=== PATIENT | male | born 1930 | race American Indian/Alaskan Native ===

== ENCOUNTER 2017-03-06 20:41 | Inpatient (IN) | payer MEDICARE, MEDICAID ==
[2017-03-06 20:41] VITALS: BMI 22.6
[2017-03-06 21:41] LABS: BASO # 0.01 K/mm3 (0.0-2.0); BASO % 0.1 % (0.0-3.0); EOS % 0.1 % (1.5-5.0); GRAN # 13.81 (1.4-6.5); GRAN % 82.5 % (50.0-68.0); HEMOGLOBIN 11.2 g/dL (14.0-18.0); LYMPH # 1.5 (1.2-3.4); LYMPH % 9.1 % (22.0-35.0); MEAN CELL VOLUME 83.3 fl (80.0-105.0); MEAN CORPUSCULAR HEMOGLOBIN 27.1 pg (25.0-35.0); MEAN CORPUSCULAR HGB CONC 32.5 g/dl (31.0-37.0); MEAN PLATELET VOLUME 11.6 fl (7.0-11.0); MONO # 1.4 (0.1-0.6); MONO % 8.2 % (1.0-6.0); RBC 4.14 10^6/uL (3.5-6.1); RED CELL DISTRIBUTION WIDTH 15.2 % (11.5-14.5); WHITE BLOOD COUNT 16.7 10^3/ul (4.5-11.0)
[2017-03-06 21:48] LABS: AST/SGOT 94 U/L (17-59)
[2017-03-06 21:49] LABS: ALT/SGPT 90 U/L (7-56); VENOUS BLOOD GAS BASE EXCESS -0.7 mmol/L (0.0-2.0); VENOUS BLOOD GAS PO2 53 mm/Hg (30-55); VENOUS BLOOD PH 7.39 (7.32-7.43)
[2017-03-06 21:57] LABS: ALBUMIN 3.6 g/dL (3.0-4.8); BLOOD UREA NITROGEN 21 mg/dL (7-21); GFR AFRICAN-AMERICAN > 60; GFR NON-AFRICAN AMERICAN > 60; MAGNESIUM 2.5 mg/dL (1.7-2.2)
[2017-03-06 21:59] LABS: INR 1.23 (0.93-1.08); PARTIAL THROMBOPLASTIN TIME 34.7 Seconds (25.1-36.5); PROTHROMBIN TIME 14.1 SECONDS (9.4-12.5)
[2017-03-06 23:31] LABS: PH,URINE 8.5 (4.7-8.0); URINE BILIRUBIN NEGATIVE (NEGATIVE); URINE BLOOD SMALL (NEGATIVE); URINE GLUCOSE (UA) NEGATIVE (NEGATIVE); URINE LEUKOCYTE ESTERASE MODERATE Leu/uL (NEGATIVE); URINE NITRATE POSITIVE (NEGATIVE); URINE PROTEIN 100 mg/dL (<30 mg/dL)
[2017-03-06 23:46] LABS: URINE APPEARANCE CLOUDY (CLEAR); URINE COLOR YELLOW (YELLOW)
[2017-03-06 23:55] LABS: URINE AMORPHOUS SEDIMENT LARGE; URINE BACTERIA MANY (NEG); URINE EPITHELIAL CELLS 0 - 2 /hpf (0-5); URINE RBC 0 - 2 /hpf (0-2)
[2017-03-06] MEDS ORDERED: cefTRIAXone 1 gm 1 GM/100 ML BAG IVPB STA (23:58)
[2017-03-07] MEDS ORDERED: Vancomycin 1gm in NS 250ml 1 GM/250 ML BAG IVPB STA (00:07)
[2017-03-07] MEDS ORDERED: Piperacillin/Tazobact 3.375 gm 100 ML IVPB STA (00:08)
--- NOTE | 2017-03-07 00:12 | ED PDOC ---
Arrival/HPI - General Chief Complaint: Medical Clearance Time Seen by Provider: 03/06/17 21:08 Historian: Patient, Detention - History of Present Illness Narrative History of Present Illness (Text): 03/07/17 00:09 86-year-old male presents today from intermediate with a fever of 103.2. Patient denies headache dizziness or weakness. Denies chest pain or shortness of breath. Patient denies abdominal pain. No nausea or vomiting. He denies any urinary symptoms. 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) - HEENT Hx HEENT Disorder: No - Renal Hx Renal Failure: No - Endocrine/Metabolic Hx Diabetes Mellitus Type 1: No Hx Diabetes Mellitus Type 2: No Hx Hypothyroidism: No - Hematological/Oncological Hx Cancer: No - Integumentary Hx Dermatological Disorder: No - Musculoskeletal/Rheumatological Hx Arthritis: No Hx Rheumatoid Arthritis: No - Gastrointestinal Hx Gastroesophageal Reflux: No - Genitourinary/Gynecological Hx Genitourinary Disorders: No - Psychiatric Hx Psychophysiologic Disorder: No Hx Substance Use: No - Anesthesia Hx Anesthesia: No Hx Anesthesia Reactions: No Hx Malignant Hyperthermia: No Family/Social History - Physician Review Nursing Documentation Reviewed: Yes Family/Social History: Unknown Family HX Smoking Status: Unknown If Ever Smoked Hx Alcohol Use: No Hx Substance Use: No Allergies/Home Meds Allergies/Adverse Reactions: Allergies No Known Allergies Allergy (Verified 02/21/16 13:41) Home Medications: Home Meds Medication Instructions Recorded Confirmed Acetaminophen 650 mg PO Q4H PRN 01/01/16 02/21/16 Atorvastatin [Lipitor] 40 mg PO HS 01/01/16 02/21/16 Docusate [Colace] 100 mg PO DAILY 01/01/16 02/21/16 Lisinopril [Zestril] 20 mg PO DAILY 01/01/16 02/21/16 Sennosides [Senna] 17.2 mg PO HS 01/01/16 02/21/16 Aspirin [Ecotrin] 325 mg PO DAILY 02/21/16 02/21/16 Review of Systems - Review of Systems Constitutional: Fevers. absent: Fatigue Respiratory: absent: SOB, Cough Cardiovascular: absent: Chest Pain, Palpitations Gastrointestinal: absent: Abdominal Pain, Nausea, Vomiting Genitourinary Male: absent: Dysuria Musculoskeletal: absent: Arthralgias, Back Pain, Neck Pain Skin: absent: Rash, Pruritis Neurological: absent: Headache, Dizziness Psychiatric: absent: Anxiety, Depression Physical Exam Vital Signs Reviewed: Yes Vital Signs Temp Pulse Resp BP Pulse Ox 03/06/17 22:56 80 18 123/66 96 03/06/17 20:56 99.3 F 78 20 96 Temperature: Afebrile Blood Pressure: Normal Pulse: Regular Respiratory Rate: Normal Appearance: Positive for: Well-Appearing, Non-Toxic, Comfortable Pain Distress: None Mental Status: Positive for: Alert and Oriented X 3 - Systems Exam Head: Present: Atraumatic Mouth: Present: Moist Mucous Membranes Respiratory/Chest: Present: Clear to Auscultation. No: Wheezes, Rhonchi, Tachypneic Cardiovascular: Present: Regular Rate and Rhythm Abdomen: No: Tenderness, Distention, Rebound, Guarding Back: Present: Normal Inspection Upper Extremity: Present: Other (left arm paralysis) Lower Extremity: Present: NORMAL PULSES, Capillary Refill < 2 s, Other (Left leg paralysis). No: Edema Neurological: Present: Speech Normal Skin: Present: Warm, Dry Psychiatric: Present: Alert, Oriented x 3 Medical Decision Making ED Course and Treatment: 03/07/17 00:12 86-year-old now with fever of 103.2 at intermediate currently with temperature of 99.3 rectally. No tachycardia. CBC White blood cell count 16.7 CMP potassium 3.4 Lactate 1 INR 1.23 Urinalysis shows positive nitrates moderate leukocytes. Blood cultures and urine cultures are pending Patient with patient with recent hospitalization, was on Keflex by mouth. We'll give vancomycin and Zosyn IV for urinary tract infection Patient reassessment: Patient remains hemodynamically stable afebrile. We'll admit to the hospital for urinary tract infection with leukocytosis Case discussed in depth with Dr. Lilly accepts admission Impression urinary tract infection, leukocytosis Admit to [facility] [place] - Lab Interpretations Lab Results: 03/06/17 21:15 03/06/17 21:15 Lab Results 03/06/17 23:00: Urine Color Yellow, Urine Appearance Cloudy, Urine pH 8.5, Ur Specific [place] 1.010, Urine Protein 100 H, Urine Glucose (UA) Negative, Urine Ketones Trace H, Urine Blood Small H, Urine Nitrate Positive H, Urine Bilirubin Negative, Urine Urobilinogen 1.0 H, Ur Leukocyte Esterase Moderate H, Urine RBC 0 - 2, Urine WBC 5 - 10, Ur Epithelial Cells 0 - 2, Amorphous Sediment Large, Urine Bacteria Many 03/06/17 21:15: Sodium 142, Chloride 104, Potassium 3.4 L, Carbon Dioxide 27, Anion Gap 14, BUN 21, Creatinine 0.8, Est GFR ( Amer) > 60, Est GFR (Non- Af Amer) > 60, Random Glucose 119 H, Calcium 9.0, Phosphorus 3.4, Magnesium 2.5 H, Total Bilirubin 0.6, AST 94 H, ALT 90 H, Alkaline Phosphatase 139 H, Total Protein 7.2, Albumin 3.6, Globulin 3.6, Albumin/Globulin Ratio 1.0 L 03/06/17 21:15: pO2 53, VBG pH 7.39, VBG pCO2 40.0, VBG HCO3 24.2, VBG Total CO2 25.4, VBG O2 Sat (Calc) 92.0 H, VBG Base Excess -0.7 L, VBG Potassium 3.0 L , Sodium 140.0, Chloride 111.0 H, Glucose 111 H, Lactate 1.0, FiO2 21.0, Venous Blood Potassium 3.0 L 03/06/17 21:15: PT 14.1 H, INR 1.23 H, APTT 34.7 03/06/17 21:15: WBC 16.7 H D, RBC 4.14, Hgb 11.2 L, Hct 34.5 L, MCV 83.3, MCH 27.1, MCHC 32.5, RDW 15.2 H, Plt Count 219, MPV 11.6 H, Gran % 82.5 H, Lymph % ( Auto) 9.1 L, [place] % (Auto) 8.2 H, Eos % (Auto) 0.1 L, Baso % (Auto) 0.1, Gran # 13.81 H, Lymph # 1.5, [place] # 1.4 H, Eos # 0.0, Baso # 0.01 - RAD Interpretation Radiology Orders: 03/06/17 21:09 CHEST PORTABLE [RAD] Stat - Medication Orders Current Medication Orders: Vancomycin HCl (Vancomycin 1gm) 1 gm in 250 mls @ 167 mls/hr IVPB STAT STA PRN Reason: Protocol Stop: 03/07/17 01:36 Piperacillin Sod/Tazobactam Sod (Zosyn 3.375 In Ns 100ml) 100 mls @ 200 mls/hr IVPB STAT STA PRN Reason: Protocol Stop: 03/07/17 00:37 Disposition/Present on Arrival - Present on Arrival Any Indicators Present on Arrival: No History of DVT/PE: No History of Uncontrolled Diabetes: No Urinary Catheter: No History of Decub. Ulcer: No History Surgical Site Infection Following: None - Disposition Have Diagnosis and Disposition been Completed?: Yes Diagnosis: Urinary tract infection, Leukocytosis Disposition: HOSPITALIZED Disposition Time: 00:14 Patient Plan: Admission Condition: FAIR
[2017-03-07] MEDS ORDERED: Magnesium Hydroxide Susp 30 ml UD PO PRN (07:40)
--- NOTE | 2017-03-07 08:03 | RAD ---
HISTORY: Sepsis Patient COMPARISON: No prior. FINDINGS: LUNGS: No active pulmonary disease. PLEURA: No significant pleural effusion identified, no pneumothorax apparent. CARDIOVASCULAR: Normal. OSSEOUS STRUCTURES: No significant abnormalities. VISUALIZED UPPER ABDOMEN: Normal. OTHER FINDINGS: None. IMPRESSION: No active disease.
--- NOTE | 2017-03-07 12:05 | CARD ---
APPROVED REPORT EKG Measurement Heart [id number] <Conclusion> Normal sinus rhythm Normal ECG
[2017-03-07] MEDS: Arformoterol 15 mcg/2 ml Inh Sol IH SCH ×2 (14:00→21:15)
--- NOTE | 2017-03-07 17:38 | CP.PCM.CON ---
History of Present Illness - History of Present Illness History of Present Illness: Infectious Disease Consultation: March 07, 2017 86 yo AA male who is a snf resident at [facility] ([facility] Last night the patient developed chills and was found to have fevers up to 103.2 F over there. Maximum temperature here in [facility] was 100.0 F so far. There is leukocytosis and signs of a UTI based on the urinalysis. Cultures taken. Supportive care. PMHx: Hypertension, Adult Failure to Thrive, CVA, Generalized Muscle Weakness. PSHx: none that I am aware of. Allergies: NKDA Social Hx: detention resident. No documentation of tobacco, EtOH, or illicit drug use Active Medications Amlodipine Besylate (Norvasc) 10 mg PO DAILY [facility] Last Admin: 03/07/17 09:26 Dose: 10 mg Arformoterol Tartrate (Brovana) 15 mcg IH [id number] [facility] Last Admin: 03/07/17 14:00 Dose: Not Given Aspirin (Aspirin) 325 mg PO DAILY [facility] Last Admin: 03/07/17 09:26 Dose: 325 mg Atorvastatin Calcium (Lipitor) 40 mg PO DIN [facility] Cyanocobalamin (Vitamin B12 1000 Mcg Tab) 1,000 mcg PO DAILY [facility] Last Admin: 03/07/17 09:26 Dose: 1,000 mcg Docusate Sodium (Colace) 100 mg PO DAILY [facility] Last Admin: 03/07/17 09:25 Dose: 100 mg Levetiracetam (Keppra) 500 mg PO BID [facility] Last Admin: 03/07/17 09:26 Dose: 500 mg Magnesium Hydroxide (Milk Of Magnesia) 30 ml PO HS PRN PRN Reason: Constipation Family Hx: Unable to Obtain ROS: Fevers and chills. No reported cough, nausea, vomiting, diarrhea, headaches, dizziness, chest pain , abdominal pain, melena, hematuria, hematemesis,hematochezia, depression, anxiety. Past Patient History - Infectious Disease Hx of Infectious Diseases: None - Past Social History Smoking Status: Unknown If Ever Smoked - CARDIAC Hx Congestive Heart Failure: Yes Hx Hypertension: Yes - PULMONARY Other/Comment: sepsis - NEUROLOGICAL HX Cerebrovascular Accident: Yes (left sided weakness) - HEENT Hx HEENT Problems: No - RENAL Hx Renal Failure: No - ENDOCRINE/METABOLIC Hx Diabetes Mellitus Type 1: No Hx Diabetes Mellitus Type 2: No Hx Hypothyroidism: No - HEMATOLOGICAL/ONCOLOGICAL Hx Cancer: No - INTEGUMENTARY Hx Dermatological Problems: No - MUSCULOSKELETAL/RHEUMATOLOGICAL Hx Falls: Yes - GASTROINTESTINAL Hx Gastroesophageal Reflux: No - GENITOURINARY/GYNECOLOGICAL Hx Genitourinary Disorders: No - PSYCHIATRIC Hx Psychophysiologic Disorder: No - SURGICAL HISTORY Hx Surgeries: No - ANESTHESIA Hx Anesthesia: No Hx Anesthesia Reactions: No Hx Malignant Hyperthermia: No Meds Allergies/Adverse Reactions: Allergies Allergy/AdvReac Type Severity Reaction Status Date / Time No Known Allergies Allergy Verified 02/21/16 13:41 - Medications Medications: Current Medications Amlodipine Besylate (Norvasc) 10 mg PO DAILY [facility] Last Admin: 03/07/17 09:26 Dose: 10 mg Arformoterol Tartrate (Brovana) 15 mcg IH [id number] [facility] Last Admin: 03/07/17 14:00 Dose: Not Given Aspirin (Aspirin) 325 mg PO DAILY [facility] Last Admin: 03/07/17 09:26 Dose: 325 mg Atorvastatin Calcium (Lipitor) 40 mg PO DIN [facility] Cyanocobalamin (Vitamin B12 1000 Mcg Tab) 1,000 mcg PO DAILY [facility] Last Admin: 03/07/17 09:26 Dose: 1,000 mcg Docusate Sodium (Colace) 100 mg PO DAILY [facility] Last Admin: 03/07/17 09:25 Dose: 100 mg Levetiracetam (Keppra) 500 mg PO BID [facility] Last Admin: 03/07/17 09:26 Dose: 500 mg Magnesium Hydroxide (Milk Of Magnesia) 30 ml PO HS PRN PRN Reason: Constipation Physical Exam - Constitutional Appears: Non-toxic, No Acute Distress, Chronically Ill - Head Exam Head Exam: ATRAUMATIC, NORMOCEPHALIC - Eye Exam Eye Exam: EOMI, PERRL Pupil Exam: NORMAL ACCOMODATION, PERRL - ENT Exam ENT Exam: Mucous Membranes Moist, Normal External Ear Exam, TM's Normal Bilaterally - Neck Exam Neck exam: Positive for: Full Rom, Normal Inspection - Respiratory Exam Respiratory Exam: Clear to Auscultation Bilateral, NORMAL BREATHING PATTERN. absent: Rales, Rhonchi, Wheezes - Cardiovascular Exam Cardiovascular Exam: REGULAR RHYTHM, RRR, +S1, +S2 - GI/Abdominal Exam GI & Abdominal Exam: Normal Bowel Sounds, Soft. absent: Distended, Tenderness - Extremities Exam Extremities exam: Positive for: full ROM, normal inspection - Neurological Exam Neurological exam: Alert, Oriented x3 - Psychiatric Exam Psychiatric exam: Normal Affect, Normal Mood - Skin Skin Exam: Intact, Normal Color Results - Vital Signs Recent Vital Signs: Last Vital Signs Temp 99.4 F 03/07/17 07:30 Pulse 87 03/07/17 07:30 Resp 18 03/07/17 07:30 BP 130/76 03/07/17 09:26 Pulse Ox 96 03/07/17 07:30 - Labs Result Diagrams: 03/06/17 21:15 03/06/17 21:15 Assessment & Plan - Assessment and Plan (Free Text) Assessment: 86 yo AA male known to me on previous hospitalizations recently hospitalized and on Keflex PO. The patient with fevers up to 103.2 F at the nursing facility. The patient with pancultures pending. Started on Zosyn and Vancomycin for antibiotic therapy from the ER. The patient is awake. He states that he was shivering at nursing facility. Will continue with Zosyn and Vancomycin for treatment at this time. Supportive care. Thank you for allowing me to participate in the care of the patient, we will follow with you.
[2017-03-07] MEDS: Vancomycin 750mg 750 MG/250 ML BAG IVPB SCH (18:16)
[2017-03-07] MEDS: Piperacillin/Tazobact 3.375 gm 100 ML IVPB SCH (20:12)
[2017-03-08] MEDS: Piperacillin/Tazobact 3.375 gm 100 ML IVPB SCH ×5 (00:54→23:52)
--- NOTE | 2017-03-08 04:24 | CON ---
DATE: 03/07/2017 PULMONARY CONSULT REFERRING PHYSICIAN: Cierra Lilly MD REASON FOR CONSULT: Cough and shortness of breath. HISTORY OF PRESENT ILLNESS: This is an 86-year-old gentleman, brought in from [facility] with fever up to 103, has cough and shortness of breath. No hemoptysis. No hematemesis. No hematuria. No diarrhea reported. Given antibiotics and seen by the Infectious Disease. PAST MEDICAL HISTORY: Heart failure, hypertension, history of CVA. SOCIAL HISTORY: long-term resident. No history of smoking or alcohol use. FAMILY HISTORY: No significant cardiopulmonary disease reported. ALLERGIES: NONE KNOWN. MEDICATIONS: He is on aspirin 325 mg daily, Brovana 15 mcg inhaled twice a day, Colace 100 mg daily, Keppra 500 mg twice a day, Lipitor 40 mg daily, milk of magnesia 30 mL at bedtime p.r.n., Norvasc 10 mg daily, vancomycin 750 mg q.12 hours, vitamin B12 1000 mcg daily, Zosyn 3.375 gm IV q.6 hours. REVIEW OF SYSTEMS: No headache or rhinitis. He has a cough with clear sputum. No nausea, vomiting, or diarrhea. No dysuria. No leg pain or leg swelling. PHYSICAL EXAMINATION GENERAL: Lying in the bed. VITAL SIGNS: T-max 103, temperature 98, heart rate 94, respiratory rate is 18, blood pressure 119/78, and pulse oximetry 94% on room air. HEENT: Moist mucous membrane. Crowded airway. NECK: Supple. No JVD. LUNGS: There is scattered rhonchi and few wheezing. HEART: S1, S2. ABDOMEN: Soft and nontender. No organomegaly. EXTREMITIES: There is no edema. NEUROLOGIC: Awake, alert, and follows simple commands. LABORATORY DATA: Shows hemoglobin of 11.2, hematocrit of 34.5, WBC is 16.7, platelet is 219, INR 1.23, PTT is 35. VBG showed pH 7.39, pCO2 40, O2 of 53. Sodium 142, potassium 3.4, chloride 104, bicarbonate 27, BUN 21, creatinine 0.8, glucose 119, calcium 9.0, phosphorous 3.4, magnesium 2.5, total bilirubin is 0.6, AST 94, ALT 90, alkaline phosphatase is 139, albumin is 3.6. Urinalysis shows wbc of 5 to 10, rbc's 0 to 2. Chest x-ray done in ER shows no active pulmonary disease. IMPRESSION AND PLAN: Fever up to 103, probably healthcare-associated sepsis , source could be lung versus urinary tract; history of stroke; hypertension; hyperlipidemia; may have sleep apnea syndrome. We will repeat swallow evaluation, continue antibiotics, keep head at 45 degrees, get CAT scan of the chest to evaluate lung parenchyma. Gastric prophylaxis, deep venous thrombosis prophylaxis, fall precautions. Thank you and we will follow with you. Riddhi Fortune MD
[2017-03-08] MEDS: Vancomycin 750mg 750 MG/250 ML BAG IVPB SCH ×2 (07:15→17:48)
[2017-03-08 07:17] LABS: IRON 20 ug/dL (45-180); MEAN CELL VOLUME 82.6 fl (80.0-105.0); MEAN CORPUSCULAR HEMOGLOBIN 25.7 pg (25.0-35.0); MEAN CORPUSCULAR HGB CONC 31.1 g/dl (31.0-37.0); RBC 3.74 10^6/uL (3.5-6.1); RED CELL DISTRIBUTION WIDTH 15.1 % (11.5-14.5); WHITE BLOOD COUNT 10.5 10^3/ul (4.5-11.0)
[2017-03-08 07:21] LABS: BLOOD UREA NITROGEN 18 mg/dL (7-21); CALCIUM 8.4 mg/dL (8.4-10.5); GFR AFRICAN-AMERICAN > 60; GFR NON-AFRICAN AMERICAN > 60; HDL CHOLESTEROL 23 mg/dL (29-60)
[2017-03-08 07:22] LABS: HEMOGLOBIN 9.6 g/dL (14.0-18.0)
[2017-03-08] MEDS: Arformoterol 15 mcg/2 ml Inh Sol IH SCH ×2 (07:28→21:33)
[2017-03-08 07:29] LABS: TOTAL IRON BINDING CAPACITY 154 ug/dL (261-462)
[2017-03-08 07:37] LABS: LDL CHOLESTEROL < 30 mg/dL (0-129)
[2017-03-08 08:02] LABS: % IRON SATURATION 13 % (20-55)
--- NOTE | 2017-03-08 08:57 | HP ---
CHIEF COMPLAINT: Fever, fatigue, and tiredness. HISTORY OF PRESENT ILLNESS: Mr. Platt is an 86-year-old male, resident of [facility] with past medical history of hypertension, CVA, came to [facility] with fever 103.2 as per alf staff, they gave him Tylenol. After when the patient came to ER, temperature was 100.0. There is leukocytosis and signs of UTI based on urinalysis. No nausea, vomiting, or diarrhea. No hematuria or hematochezia. No headache. No dizziness. No chest pain. No palpitation. PAST MEDICAL HISTORY: History of hypertension, congestive heart failure, COPD, and old CVA with left-sided weakness. FAMILY HISTORY: Father and mother noncontributory. HABITS: No smoking. No drugs. No ethanol. ALLERGIES: THE PATIENT IS NOT ALLERGIC TO ANY MEDICATIONS. HOME MEDICATIONS: Tylenol, Lipitor, Colace, Zestril, REVIEW OF SYSTEMS: The patient is seen and examined at the bedside in his room looking comfortable. No nausea, vomiting, or diarrhea. No hematuria or hematochezia. No swelling of the leg. No chest pain. No palpitation. No headache. No dizziness. He is having fever. PHYSICAL EXAMINATION: VITAL SIGNS: Temperature 97.3, pulse 94, blood pressure 119/70, and respiratory rate 18. HEENT: Head; normocephalic and atraumatic. Eyes; PERRLA. Extraocular muscles intact. Conjunctivae clear. Nose patent. Mucous membranes moist. NECK: Supple. No carotid bruit, JVD, or thyromegaly. CHEST: Bilaterally symmetrical. HEART: S1 and S2 positive. LUNGS: Clear to auscultation. ABDOMEN: Soft. Bowel sounds present. No organomegaly. EXTREMITIES: No edema. No cyanosis. NEUROLOGIC: The patient is awake, alert, and moving all 4 extremities. No focal deficit. LABORATORY DATA: White blood cell 10.7, hemoglobin 11.2, hematocrit 34.5, and platelets 219. Sodium 142, potassium 3.4, BUN 31, creatinine 0.8, and glucose 119. ASSESSMENT AND PLAN: Mr. Platt is an 86-year-old male with leukocytosis, anemia, has hypokalemia, hyperglycemia, abnormal liver function tests, proteinuria, hematuria, ketonuria, urinary tract infection, and rule out sepsis. ID consult called with Dr. Leandro Busby. History of hypertension and cerebrovascular accident. In the alf, he had a temperature of 103.2, but in the ER, it is 100 degrees. Started on Zosyn and vancomycin. According to the patient, he said he was shivering in the facility. We will continue Zosyn and vancomycin for the treatment. Repeat labs, especially repeat liver function tests and we will follow up. Cierra Lilly MD MTDBrandyn
[2017-03-08] MEDS ORDERED: Potassium Chloride 20 mEq ER Tab PO ONE (09:00)
--- NOTE | 2017-03-08 09:36 | CT ---
PROCEDURE: CT Chest without contrast HISTORY: pneumonia COMPARISON: 03/06/2017 single-view chest TECHNIQUE: Contiguous axial images were obtained through the chest without intravenous contrast enhancement. Sagittal and coronal reconstructions were performed. Radiation dose (DLP): 605.69 mGy-cm. This CT exam was performed using one or more of the following dose reduction techniques: Automated exposure control, adjustment of the mA and/or kV according to patient size, and/or use of iterative reconstruction technique. FINDINGS: LUNGS: Large left lower lobe infiltrate consistent with pneumonia. MEDIASTINUM: Unremarkable thoracic aorta. No aneurysm. Cardiomegaly. No evidence of acute, significant cardiovascular disease. Main pulmonary artery unremarkable. No vascular congestion. No lymphadenopathy. PLEURA: Trace left pleural effusion and BONES: No fracture. No destructive lesion. UPPER ABDOMEN: Grossly unremarkable. Incompletely visualize calculus disease left kidney. Solitary calculus 4 mm midpole region. OTHER FINDINGS: None. IMPRESSION: Large left lower lobe infiltrate/pneumonia.
--- NOTE | 2017-03-08 12:45 | CP.PCM.HP ---
<Juana Quijano - Last Filed: 03/09/17 01:39> History of Present Illness - History of Present Illness History of Present Illness: 86 yr male from [facility] w/ history of CVA ( L sided weakness), HTN, GERD, sizure disorder, CHF, & COPD. He was sent to [facility] for fever of 103.2. Patient denies headache dizziness or weakness. Denies chest pain or shortness of breath. Patient denies abdominal pain. No nausea or vomiting. He denies any urinary symptoms. Present on Admission - Present on Admission Any Indicators Present on Admission: No History of DVT/PE: No History of Uncontrolled Diabetes: No Urinary Catheter: No Decubitus Ulcer Present: No Review of Systems - Constitutional Constitutional: As Per HPI - EENT Eyes: As Per HPI Ears: As Per HPI Nose/Mouth/Throat: As Per HPI - Cardiovascular Cardiovascular: As Per HPI - Respiratory Respiratory: As Per HPI - Gastrointestinal Gastrointestinal: As Per HPI - Genitourinary Genitourinary: As Per HPI - Musculoskeletal Musculoskeletal: As Per HPI - Integumentary Integumentary: As Per HPI - Neurological Neurological: As Per HPI - Psychiatric Psychiatric: As Per HPI - Endocrine Endocrine: As Per HPI - Hematologic/Lymphatic Hematologic: As Per HPI Past Patient History - Infectious Disease Hx of Infectious Diseases: None - Past Social History Smoking Status: Unknown If Ever Smoked - CARDIAC Hx Congestive Heart Failure: Yes Hx Hypertension: Yes - PULMONARY Other/Comment: sepsis - NEUROLOGICAL HX Cerebrovascular Accident: Yes (left sided weakness) - HEENT Hx HEENT Problems: No - RENAL Hx Renal Failure: No - ENDOCRINE/METABOLIC Hx Diabetes Mellitus Type 1: No Hx Diabetes Mellitus Type 2: No Hx Hypothyroidism: No - HEMATOLOGICAL/ONCOLOGICAL Hx Cancer: No - INTEGUMENTARY Hx Dermatological Problems: No - MUSCULOSKELETAL/RHEUMATOLOGICAL Hx Falls: Yes - GASTROINTESTINAL Hx Gastroesophageal Reflux: No - GENITOURINARY/GYNECOLOGICAL Hx Genitourinary Disorders: No - PSYCHIATRIC Hx Psychophysiologic Disorder: No - SURGICAL HISTORY Hx Surgeries: No - ANESTHESIA Hx Anesthesia: No Hx Anesthesia Reactions: No Hx Malignant Hyperthermia: No Meds Allergies/Adverse Reactions: Allergies Allergy/AdvReac Type Severity Reaction Status Date / Time No Known Allergies Allergy Verified 02/21/16 13:41 Physical Exam - Constitutional Appears: Well - Head Exam Head Exam: ATRAUMATIC, NORMAL INSPECTION, NORMOCEPHALIC - Eye Exam Eye Exam: EOMI, Normal appearance, PERRL - ENT Exam ENT Exam: Mucous Membranes Dry - Neck Exam Neck exam: Positive for: Normal Inspection - Respiratory Exam Respiratory Exam: Clear to Auscultation Bilateral, NORMAL BREATHING PATTERN - Cardiovascular Exam Cardiovascular Exam: REGULAR RHYTHM - GI/Abdominal Exam GI & Abdominal Exam: Normal Bowel Sounds, Soft. absent: Tenderness - Extremities Exam Extremities exam: Positive for: normal inspection - Back Exam Back exam: NORMAL INSPECTION - Neurological Exam Neurological exam: Alert, Oriented x3 - Psychiatric Exam Psychiatric exam: Normal Affect, Normal Mood - Skin Skin Exam: Dry, Intact, Normal Color, Warm Results - Vital Signs Recent Vital Signs: Last Vital Signs Temp 98.7 F 03/08/17 07:30 Pulse 89 03/08/17 07:30 Resp 20 03/08/17 07:30 BP 133/70 03/08/17 09:20 Pulse Ox 95 03/08/17 07:30 - Labs Result Diagrams: 03/08/17 06:20 03/08/17 06:20 Labs: Laboratory Results - last 24 hr 03/08/17 03/08/17 03/08/17 06:20 06:20 06:20 WBC 10.5 D RBC 3.74 Hgb 9.6 L Hct 30.9 L MCV 82.6 MCH 25.7 MCHC 31.1 RDW 15.1 H Plt Count 211 MPV 11.0 Sodium 141 Potassium 3.2 L Chloride 106 Carbon Dioxide 26 Anion Gap 13 BUN 18 Creatinine 0.6 L Est GFR ( Amer) > 60 Est GFR (Non-Af Amer) > 60 Random Glucose 97 Calcium 8.4 Magnesium Iron 20 L TIBC 154 L % Saturation 13 L Triglycerides 55 Cholesterol 66 L LDL Cholesterol Direct < 30 HDL Cholesterol 23 L TSH 3rd Generation 03/08/17 03/08/17 06:20 06:20 WBC RBC Hgb Hct MCV MCH MCHC RDW Plt Count MPV Sodium Potassium Chloride Carbon Dioxide Anion Gap BUN Creatinine Est GFR ( Amer) Est GFR (Non-Af Amer) Random Glucose Calcium Magnesium 2.6 H Iron TIBC % Saturation Triglycerides Cholesterol LDL Cholesterol Direct HDL Cholesterol TSH 3rd Generation 1.79 Assessment & Plan (1) Hypokalemia Status: Acute (2) Dehydration Status: Acute (3) Abnormal LFTs (liver function tests) Status: Acute (4) Leukocytosis Status: Acute (5) Urinary tract infection Status: Acute (6) Altered mental status Status: Acute (7) Pneumonia Status: Acute - Assessment and Plan (Free Text) Plan: Labs BMP, CBC K supplementation Blood cultures: pending IV vanco, zosyn for UTI GI/VTE prophylaxis OT onboard Consults ID - Dr. Busby - pancultures pending. continue with Zosyn and Vancomycin for treatment at this time. Pulmonary - Dr. Fortune - Reviewed: CT chest = faint multifocal subsegmental likely infectious/inflammatory CT lumbar spine = Severe disc degeneration L3-L4-L5, laminectomy from L3-L5, no obvious fluid collection to suggest abscess CXR = WNL ECG = ABNORMAL - sinus tachycardia, nonspecific ST abnormality, Q wave in III, avf - Date & Time Date: 03/08/17 Time: 11:30 <Cierra Lilly - Last Filed: 03/09/17 15:40> Results - Vital Signs Recent Vital Signs: Last Vital Signs Temp 99.5 F 03/09/17 07:30 Pulse 77 03/09/17 07:30 Resp 16 03/09/17 07:30 BP 125/67 03/09/17 10:18 Pulse Ox 93 L 03/09/17 07:30 - Labs Result Diagrams: 03/09/17 07:00 03/09/17 07:00 Labs: Laboratory Results - last 24 hr 03/09/17 03/09/17 07:00 07:00 WBC 8.7 RBC 3.59 Hgb 9.5 L Hct 29.9 L MCV 83.3 MCH 26.5 MCHC 31.8 RDW 15.1 H Plt Count 227 MPV 10.6 Sodium 144 Potassium 3.3 L Chloride 109 H Carbon Dioxide 26 Anion Gap 12 BUN 13 Creatinine 0.6 L Est GFR ( Amer) > 60 Est GFR (Non-Af Amer) > 60 Random Glucose 99 Calcium 8.3 L Assessment & Plan - Assessment and Plan (Free Text) Plan: 86 yr male from [facility] w/ history of CVA ( L sided weakness), HTN, GERD, sizure disorder, CHF, & COPD. He was sent to [facility] [place] fever of 103.2. Patient denies headache dizziness or weakness. Denies chest pain or shortness of breath. Patient denies abdominal pain. No nausea or vomiting. He denies any urinary symptoms.pt is seen and examined at bed side , looking comfortable , agreed all above , no change of status . will f/u
[2017-03-08 14:01] LABS: FOLATE 9.1 ng/mL
--- NOTE | 2017-03-08 18:35 | CP.PCM.PN ---
Subjective - Date & Time of Evaluation Date of Evaluation: 03/08/17 Time of Evaluation: 16:15 - Subjective Subjective: Infectious Disease Follow Up: March 08, 2017 86 yo AA male who [facility] Last night the patient developed chills and was found to have fevers up to 103.2 F over there. Maximum temperature here in [facility] was 100.0 F so far. There is leukocytosis and signs of a UTI based on the urinalysis. Cultures taken. Supportive care. Urine culture with growth of multiple organisms for over 100,000 CFU/ml. Will repeat urine cultures. Afebrile so far. Objective - Vital Signs/Intake and Output Vital Signs (last 24 hours): Temp Pulse Resp BP Pulse Ox 99.1 F 84 20 115/67 97 03/08/17 16:00 03/08/17 16:00 03/08/17 16:00 03/08/17 16:00 03/08/17 16:00 Intake and Output: 03/08/17 03/08/17 06:59 18:59 Intake Total 970 480 Balance 970 480 - Medications Medications: Current Medications Amlodipine Besylate (Norvasc) 10 mg PO DAILY [facility] Last Admin: 03/08/17 09:20 Dose: 10 mg Arformoterol Tartrate (Brovana) 15 mcg IH [id number] [facility] Last Admin: 03/08/17 07:28 Dose: 15 mcg Aspirin (Aspirin) 325 mg PO DAILY [facility] Last Admin: 03/08/17 09:19 Dose: 325 mg Atorvastatin Calcium (Lipitor) 40 mg PO DIN [facility] Last Admin: 03/08/17 17:48 Dose: 40 mg Cyanocobalamin (Vitamin B12 1000 Mcg Tab) 1,000 mcg PO DAILY [facility] Last Admin: 03/08/17 09:20 Dose: 1,000 mcg Docusate Sodium (Colace) 100 mg PO DAILY [facility] Last Admin: 03/08/17 09:20 Dose: 100 mg Vancomycin HCl (Vancomycin 750 Mg In Ns) 750 mg in 250 mls @ 167 mls/hr IVPB Q12H [facility] PRN Reason: Protocol Last Admin: 03/08/17 17:48 Dose: 167 mls/hr Piperacillin Sod/Tazobactam Sod (Zosyn 3.375 In Ns 100ml) 100 mls @ 200 mls/hr IVPB Q6 [facility] PRN Reason: Protocol Last Admin: 03/08/17 13:00 Dose: 200 mls/hr Levetiracetam (Keppra) 500 mg PO BID [facility] Last Admin: 03/08/17 17:48 Dose: 500 mg Magnesium Hydroxide (Milk Of Magnesia) 30 ml PO HS PRN PRN Reason: Constipation - Labs Labs: 03/08/17 06:20 03/08/17 06:20 PT 14.1 SECONDS (9.4-12.5) H 03/06/17 21:15 INR 1.23 (0.93-1.08) H 03/06/17 21:15 APTT 34.7 Seconds (25.1-36.5) 03/06/17 21:15 - Constitutional Appears: Non-toxic, No Acute Distress, Chronically Ill - Head Exam Head Exam: ATRAUMATIC, NORMOCEPHALIC - Eye Exam Eye Exam: EOMI, PERRL Pupil Exam: NORMAL ACCOMODATION, PERRL - ENT Exam ENT Exam: Mucous Membranes Moist, Normal External Ear Exam, TM's Normal Bilaterally - Neck Exam Neck Exam: Full ROM, Normal Inspection - Respiratory Exam Respiratory Exam: Clear to Ausculation Bilateral, NORMAL BREATHING PATTERN. absent: Rales, Rhonchi, Wheezes - Cardiovascular Exam Cardiovascular Exam: REGULAR RHYTHM, RRR, +S1, +S2 - GI/Abdominal Exam GI & Abdominal Exam: Soft, Normal Bowel Sounds. absent: Distended, Tenderness - Extremities Exam Extremities Exam: Full ROM, Normal Inspection - Neurological Exam Neurological Exam: Alert, Awake, Oriented x3 - Psychiatric Exam Psychiatric exam: Normal Affect, Normal Mood - Skin Skin Exam: Intact, Normal Color Assessment and Plan - Assessment and Plan (Free Text) Assessment: 86 yo AA male known to me on previous hospitalizations recently hospitalized and on Keflex PO. The patient with fevers up to 103.2 F at the nursing facility. The patient with pancultures pending. Started on Zosyn and Vancomycin for antibiotic therapy from the ER. The patient is awake. He states that he was shivering at nursing facility. Will continue with Zosyn and Vancomycin for treatment at this time. Supportive care. Urine culture showing multiple organisms. Will reorder another Urine culture for evaluation. Afebrile so far during this hospitalization. Thank you for allowing me to participate in the care of the patient, we will follow with you.
[2017-03-09] MEDS: Piperacillin/Tazobact 3.375 gm 100 ML IVPB SCH ×3 (05:38→17:21)
[2017-03-09] MEDS: Vancomycin 750mg 750 MG/250 ML BAG IVPB SCH ×2 (06:34→17:21)
[2017-03-09 07:40] LABS: HEMOGLOBIN 9.5 g/dL (14.0-18.0); MEAN CELL VOLUME 83.3 fl (80.0-105.0); MEAN CORPUSCULAR HEMOGLOBIN 26.5 pg (25.0-35.0); MEAN CORPUSCULAR HGB CONC 31.8 g/dl (31.0-37.0); MEAN PLATELET VOLUME 10.6 fl (7.0-11.0); RBC 3.59 10^6/uL (3.5-6.1); RED CELL DISTRIBUTION WIDTH 15.1 % (11.5-14.5); WHITE BLOOD COUNT 8.7 10^3/ul (4.5-11.0)
[2017-03-09 08:05] LABS: BLOOD UREA NITROGEN 13 mg/dL (7-21); CALCIUM 8.3 mg/dL (8.4-10.5); GFR AFRICAN-AMERICAN > 60; GFR NON-AFRICAN AMERICAN > 60
--- NOTE | 2017-03-09 08:35 | PN ---
DATE: 03/08/2017 REFERRING PHYSICIAN: Dr. Lilly. SUBJECTIVE: He is lying in the bed at 45 degree. Feels better, still has some cough. No nausea, no vomiting, no diarrhea. No leg pain or leg swelling. OBJECTIVE: VITAL SIGNS: Temperature is 99, heart rate 64, respiratory rate is 20, blood pressure 115/67, pulse oximetry is 97% on room air. HEENT: Moist mucous membrane. Crowded airway. NECK: Supple. No JVD. LUNGS: Have a few scattered rhonchi. HEART: S1 and S2. ABDOMEN: Soft, nontender. No organomegaly. EXTREMITIES: No edema. NEUROLOGIC: Awake, alert. Follows simple command. MEDICATIONS: He is on aspirin 325 mg daily, Brovana inhaled twice a day, Colace 100 mg daily, Keppra 500 mg twice a day, Lipitor 40 mg daily, p.r.n. basis, Norvasc 10 mg daily, vancomycin 750 mg q.12 hours, vitamin B12 of 1000 mcg daily, Zosyn 3.375 gm IV q.6 hours. LABORATORY DATA: Shows hemoglobin 9.6, hematocrit 30.9, WBC 10.5, platelets 211. Sodium 141, potassium 3.2, chloride 106, bicarbonate 26, BUN 18, creatinine 0.6, hemoglobin A1c 6.2, magnesium 2.6, iron 20, AST 94, ALT 90, alk phos is 139. Albumin is 3.6. Cholesterol is 66. B12 more than 1000. Folate 9.1. TSH 1.79. Microbiology, blood culture is negative. Urine culture has multiple organisms. CAT scan of the chest done which shows left lower lobe pneumonia. IMPRESSION AND PLAN: Healthcare-associated pneumonia, urinary tract infection, history of stroke, hypertension, hyperlipidemia, may have sleep apnea syndrome, oropharyngeal dysphagia, on modified diet. Continue antibiotics, keep head at 45 degrees. Bronchodilator, aspiration precaution. Gastric prophylaxis. Deep venous thrombosis prophylaxis. Fall precaution. Thank you, and we will follow with you. Riddhi Fortune MD
[2017-03-09] MEDS: Arformoterol 15 mcg/2 ml Inh Sol IH SCH ×2 (08:36→19:52)
[2017-03-09] MEDS ORDERED: Potassium Chloride 20 mEq ER Tab PO ONE (10:13)
--- NOTE | 2017-03-09 11:42 | PQF ANEMIA ---
This form is a permanent part of the medical record Clarification of your documentation is requested to better reflect the severity of illness and intensity of treatment of your patient. Indicators present Can you specify type of anemia for coding accuracy? Admitted w/ Iron- 20, TIBC, sat- 13% [x] Anemia [] Drop in H&H from []___ to []___ [] Hypotension [] GI Bleed [] Transfusion(s) [] Acute bleed other sites [] Tachycardia [] Surgical Procedure Blood Loss (expected not a complication) Other:[] Location in the medical record that reflects the above clinical findings: [x] Admission labs Treatment Provided: [] Vit B12 PHYSICIAN'S RESPONSE Based on your medical judgment of the clinical indicators outlined above, are you treating this patient for a known or suspected: [] Acute blood loss anemia [] Chronic blood loss anemia [] Acute on Chronic blood loss anemia [] Anemia due to malignancy [] Anemia due to chemotherapy or radiation therapy [] Anemia of Chronic Disease, please specify: [] [] Other, please indicate type of anemia []____ [] If Unable to Determine, please check the box, sign and date. Present On Admission (POA) Indicator: [] Present at the time of admission [] Not present at the time of admission [] Clinically Undetermined In responding to this query, please exercise your independent professional judgment. The fact that a question is asked does not imply that any particular answer is desired or expected. Thank you for your clarification on this documentation. If you have any questions please call:[ ] [phone] * Thank you, [ ] Candice Currie RN [employer] [facility]USAN
--- NOTE | 2017-03-09 17:10 | CP.PCM.PN ---
Subjective - Date & Time of Evaluation Date of Evaluation: 03/09/17 Time of Evaluation: 15:00 - Subjective Subjective: Infectious Disease Follow Up: March 09, 2017 86 yo AA male who is a halfway resident at [facility] ([facility]). Last night the patient developed chills and was found to have fevers up to 103.2 F over there. Maximum temperature here in [facility] was 100.0 F so far. There is leukocytosis and signs of a UTI based on the urinalysis. Cultures taken. Supportive care. Urine culture with growth of multiple organisms for over 100,000 CFU/ml. Will repeat urine cultures... results pending. Afebrile so far. Patient states that he is comfortable. Currently on Zosyn and Vancomycin. No renal insufficiency noted. Objective - Vital Signs/Intake and Output Vital Signs (last 24 hours): Temp Pulse Resp BP Pulse Ox 99.5 F 77 16 125/67 93 L 03/09/17 07:30 03/09/17 07:30 03/09/17 07:30 03/09/17 10:18 03/09/17 07:30 Intake and Output: 03/09/17 03/09/17 06:59 18:59 Intake Total 420 480 Output Total 1 30 Balance 419 450 - Medications Medications: Current Medications Amlodipine Besylate (Norvasc) 10 mg PO DAILY [facility] Last Admin: 03/09/17 10:18 Dose: 10 mg Arformoterol Tartrate (Brovana) 15 mcg IH [id number] [facility] Last Admin: 03/09/17 08:36 Dose: 15 mcg Aspirin (Aspirin) 325 mg PO DAILY [facility] Last Admin: 03/09/17 10:19 Dose: 325 mg Atorvastatin Calcium (Lipitor) 40 mg PO DIN [facility] Last Admin: 03/08/17 17:48 Dose: 40 mg Cyanocobalamin (Vitamin B12 1000 Mcg Tab) 1,000 mcg PO DAILY [facility] Last Admin: 03/09/17 10:19 Dose: 1,000 mcg Docusate Sodium (Colace) 100 mg PO DAILY [facility] Last Admin: 03/09/17 10:19 Dose: 100 mg Vancomycin HCl (Vancomycin 750 Mg In Ns) 750 mg in 250 mls @ 167 mls/hr IVPB Q12H [facility] PRN Reason: Protocol Last Admin: 01/09/18 06:34 Dose: 167 mls/hr Piperacillin Sod/Tazobactam Sod (Zosyn 3.375 In Ns 100ml) 100 mls @ 200 mls/hr IVPB Q6 [facility] PRN Reason: Protocol Last Admin: 03/09/17 13:43 Dose: 200 mls/hr Levetiracetam (Keppra) 500 mg PO BID [facility] Last Admin: 03/09/17 10:19 Dose: 500 mg Magnesium Hydroxide (Milk Of Magnesia) 30 ml PO HS PRN PRN Reason: Constipation Polyethylene Glycol (Miralax) 17 gm PO DAILY [facility] - Labs Labs: 03/09/17 07:00 03/09/17 07:00 PT 14.1 SECONDS (9.4-12.5) H 03/06/17 21:15 INR 1.23 (0.93-1.08) H 03/06/17 21:15 APTT 34.7 Seconds (25.1-36.5) 03/06/17 21:15 - Constitutional Appears: Non-toxic, No Acute Distress, Chronically Ill - Head Exam Head Exam: ATRAUMATIC, NORMOCEPHALIC - Eye Exam Eye Exam: EOMI, PERRL Pupil Exam: NORMAL ACCOMODATION, PERRL - ENT Exam ENT Exam: Mucous Membranes Moist, Normal External Ear Exam, TM's Normal Bilaterally - Neck Exam Neck Exam: Full ROM, Normal Inspection - Respiratory Exam Respiratory Exam: Clear to Ausculation Bilateral, NORMAL BREATHING PATTERN. absent: Rales, Rhonchi, Wheezes - Cardiovascular Exam Cardiovascular Exam: REGULAR RHYTHM, RRR, +S1, +S2 - GI/Abdominal Exam GI & Abdominal Exam: Soft, Normal Bowel Sounds. absent: Distended, Tenderness - Rectal Exam Rectal Exam: Deferred - Extremities Exam Extremities Exam: Normal Inspection. absent: Joint Swelling, Pedal Edema - Neurological Exam Neurological Exam: Alert, Awake, CN II-XII Intact Additional comments: AAO x 2-3 - Psychiatric Exam Psychiatric exam: Normal Affect, Normal Mood - Skin Skin Exam: Intact, Normal Color Assessment and Plan - Assessment and Plan (Free Text) Assessment: 86 yo AA male known to me on previous hospitalizations recently hospitalized and on Keflex PO. The patient with fevers up to 103.2 F at the nursing facility. The patient with pancultures pending. Started on Zosyn and Vancomycin for antibiotic therapy from the ER. The patient is awake. He states that he was shivering at nursing facility. Will continue with Zosyn and Vancomycin for treatment at this time. Awaiting repeat culture result. Supportive care. Urine culture showing multiple organisms. Will reorder another Urine culture for evaluation. Afebrile so far during this hospitalization. Patient has been comfortable and without complaints. Thank you for allowing me to participate in the care of the patient, we will follow with you.
--- NOTE | 2017-03-10 00:38 | PN ---
DATE: 03/09/2017 PULMONARY PROGRESS NOTE REFERRING PHYSICIAN: Cierra Lilly MD SUBJECTIVE: He is lying in the bed, head at 45 degrees. Cough is better. No nausea, no vomiting, no diarrhea. No leg pain or no leg swelling. PHYSICAL EXAMINATION GENERAL: In no acute distress. VITAL SIGNS: Temperature 98, heart is 58, respiratory rate is 16, blood pressure 120/67, pulse of 98% room air. HEENT: Moist mucous membrane. Crowded airway. NECK: Supple. No JVD. LUNGS: Has fair airflow with rhonchi. HEART: S1 and S2. ABDOMEN: Soft, nontender, no organomegaly. EXTREMITIES: No edema. NEUROLOGIC: Awake, alert and follows simple command. MEDICATIONS: He is on aspirin 325 mg daily, Brovana inhaled twice a day, Colace 100 mg twice a day, Keppra 500 mg twice a day, Lipitor 40 mg daily, milk of magnesia p.o. at bedtime p.r.n., MiraLax 17 g daily, Norvasc 10 mg daily vancomycin 750 mg q. 12 hours, vitamin B12 1000 mcg daily, Zosyn 3.375 g IV q. 8 hour. LABORATORY DATA: Shows hemoglobin 9.5, hematocrit 29.9, WBC 8.7, platelet is 227. Sodium 144, potassium 3.3, chloride 109, bicarbonate 26, BUN 13, creatinine 0.6, glucose is 99, calcium is 8.3, magnesium 2.6. TSH 1.79. Microbiology: Blood culture, urine culture, there is no growth. IMPRESSION AND PLAN: Healthcare-associated pneumonia, urinary tract infection, history of stroke, hypertension, hyperlipidemia, may have sleep apnea syndrome, oropharyngeal dysphagia, on modified diet. The patient is encouraged to set up for meals, antibiotics, bronchodilator, aspiration precaution. Gastric prophylaxis, deep venous thrombosis prophylaxis. Thank you and we will follow with you. Riddhi Fortune MD
--- NOTE | 2017-03-10 00:51 | PN ---
DATE: SUBJECTIVE: The patient is 86-year-old male. The patient is seen and examined at the bedside, looking comfortable. He is more awake and alert today. No nausea, vomiting, or diarrhea. No hematemesis or hematochezia. No swelling of the legs. No chest pain or palpitation. No headache or dizziness. PHYSICAL EXAMINATION: VITAL SIGNS: Temperature 98.8, pulse 58, blood pressure 120/67, respiratory rate 16. HEENT: Head is normocephalic and atraumatic. Eyes, PERRLA. Extraocular muscles intact. Conjunctivae clear. Nose patent. Mucous membrane moist. NECK: Supple. No carotid bruit. No JVD or thyromegaly. CHEST: Bilaterally symmetrical. HEART: S1 and S2 positive. LUNGS: Clear to auscultation. ABDOMEN: Soft. Bowel sounds positive. No organomegaly. EXTREMITIES: No edema. No cyanosis. NEUROLOGIC: The patient is awake and alert. Moving all four extremities. No focal deficits. MEDICATIONS: Aspirin, Brovana, Colace, Keppra, Lipitor, milk of magnesia, MiraLax, amlodipine, vancomycin, B12, Zosyn. LABORATORY DATA: White blood cell 8.7, hemoglobin 9.5, hematocrit 29.9, and platelets 227. Sodium 144, potassium 3.3, BUN 30, creatinine 0.6, calcium 8.3. ASSESSMENT AND PLAN: Mr. Enrique Platt is 86-year-old male with anemia, hypokalemia, hyperchloremia, hypocalcemia, hypermagnesemia, iron deficiency, has proteinuria, ketonuria, hematuria, and urinary tract infection. The patient came from [facility] with fever of 103.2. Started on Zosyn and vancomycin for antibiotics therapy from ER. We will continue Zosyn and vancomycin. Urine culture is showing multiple organisms. Now, the patient is afebrile, has healthcare-associated pneumonia, urinary tract infection, history of stroke, hypertension, hypercholesterolemia, sleep apnea syndrome, oropharyngeal dysphagia, on modified diet, bronchodilator, aspiration precaution. GI and DVT prophylaxis. Repeat labs. We will followup. Cierra Lilly MD [facility] # [id number] [facility]
[2017-03-10] MEDS: Piperacillin/Tazobact 3.375 gm 100 ML IVPB SCH ×4 (00:52→17:15)
[2017-03-10] MEDS: Vancomycin 750mg 750 MG/250 ML BAG IVPB SCH (06:22)
[2017-03-10] MEDS: Arformoterol 15 mcg/2 ml Inh Sol IH SCH (07:24)
[2017-03-10 07:59] LABS: BLOOD UREA NITROGEN 9 mg/dL (7-21); CALCIUM 8.3 mg/dL (8.4-10.5); GFR AFRICAN-AMERICAN > 60; GFR NON-AFRICAN AMERICAN > 60
[2017-03-10 08:11] VITALS: BP 135/75; PULSE 73; RESP 18; TEMP 98.9; O2SAT 96
[2017-03-10] MEDS ORDERED: POLYETHYLENE GLYCOL 3350 17 GM/Dose PACKET PO SCH (10:00)
--- NOTE | 2017-03-10 16:04 | CP.PCM.PN ---
Subjective - Date & Time of Evaluation Date of Evaluation: 03/10/17 Time of Evaluation: 14:45 - Subjective Subjective: Infectious Disease Follow Up: March 10, 2017 86 yo AA male who is a group home resident at [facility] (aka [facility]). Last night the patient developed chills and was found to have fevers up to 103.2 F over there. Maximum temperature here in [facility] was 100.0 F so far. There is leukocytosis and signs of a UTI based on the urinalysis. Cultures taken. Supportive care. Urine culture with growth of multiple organisms for over 100,000 CFU/ml. Will repeat urine cultures... results pending. Afebrile so far. Patient states that he is comfortable. Currently on Zosyn and Vancomycin. No renal insufficiency noted. Patient appears comfortable and is making no complaints. Repeat urine culture is negative. Objective - Vital Signs/Intake and Output Vital Signs (last 24 hours): Temp Pulse Resp BP Pulse Ox 98.9 F 73 18 135/75 96 03/10/17 08:10 03/10/17 08:10 03/10/17 08:10 03/10/17 10:47 03/10/17 08:10 Intake and Output: 03/10/17 03/10/17 06:59 18:59 Intake Total 540 240 Output Total 200 Balance 340 240 - Medications Medications: Current Medications Amlodipine Besylate (Norvasc) 10 mg PO DAILY [facility] Last Admin: 03/10/17 10:47 Dose: 10 mg Arformoterol Tartrate (Brovana) 15 mcg IH [id number] [facility] Last Admin: 03/10/17 07:24 Dose: 15 mcg Aspirin (Aspirin) 325 mg PO DAILY [facility] Last Admin: 03/10/17 10:46 Dose: 325 mg Atorvastatin Calcium (Lipitor) 40 mg PO DIN [facility] Last Admin: 03/09/17 17:21 Dose: 40 mg Cyanocobalamin (Vitamin B12 1000 Mcg Tab) 1,000 mcg PO DAILY [facility] Last Admin: 03/10/17 10:46 Dose: 1,000 mcg Docusate Sodium (Colace) 100 mg PO DAILY [facility] Last Admin: 03/10/17 10:46 Dose: 100 mg Vancomycin HCl (Vancomycin 750 Mg In Ns) 750 mg in 250 mls @ 167 mls/hr IVPB Q12H [facility] PRN Reason: Protocol Last Admin: 03/10/17 06:22 Dose: 167 mls/hr Piperacillin Sod/Tazobactam Sod (Zosyn 3.375 In Ns 100ml) 100 mls @ 200 mls/hr IVPB Q6 [facility] PRN Reason: Protocol Last Admin: 03/10/17 12:43 Dose: 200 mls/hr Levetiracetam (Keppra) 500 mg PO BID [facility] Last Admin: 03/10/17 10:46 Dose: 500 mg Magnesium Hydroxide (Milk Of Magnesia) 30 ml PO HS PRN PRN Reason: Constipation Polyethylene Glycol (Miralax) 17 gm PO DAILY [facility] Last Admin: 03/10/17 10:47 Dose: 17 gm - Labs Labs: 03/09/17 07:00 03/10/17 06:45 PT 14.1 SECONDS (9.4-12.5) H 03/06/17 21:15 INR 1.23 (0.93-1.08) H 03/06/17 21:15 APTT 34.7 Seconds (25.1-36.5) 03/06/17 21:15 - Constitutional Appears: Non-toxic, No Acute Distress, Chronically Ill - Head Exam Head Exam: ATRAUMATIC, NORMOCEPHALIC - Eye Exam Eye Exam: EOMI, PERRL Pupil Exam: NORMAL ACCOMODATION, PERRL - ENT Exam ENT Exam: Mucous Membranes Moist, Normal External Ear Exam, TM's Normal Bilaterally - Respiratory Exam Respiratory Exam: Clear to Ausculation Bilateral, NORMAL BREATHING PATTERN. absent: Rales, Rhonchi, Wheezes - Cardiovascular Exam Cardiovascular Exam: REGULAR RHYTHM, RRR, +S1, +S2 - GI/Abdominal Exam GI & Abdominal Exam: Soft, Normal Bowel Sounds. absent: Distended, Tenderness - Extremities Exam Extremities Exam: Full ROM, Normal Inspection - Neurological Exam Neurological Exam: Alert, Awake, CN II-XII Intact Additional comments: AAO x 2 - Psychiatric Exam Psychiatric exam: Normal Affect, Normal Mood - Skin Skin Exam: Intact, Normal Color Assessment and Plan - Assessment and Plan (Free Text) Assessment: 86 yo AA male known to me on previous hospitalizations recently hospitalized and on Keflex PO. The patient with fevers up to 103.2 F at the nursing facility. The patient with pancultures pending. Started on Zosyn and Vancomycin for antibiotic therapy from the ER. The patient is awake. He states that he was shivering at nursing facility. Will continue with Zosyn and Vancomycin for treatment at this time. Awaiting repeat culture result. Supportive care. Urine culture showing multiple organisms. Will reorder another Urine culture for evaluation. Afebrile so far during this hospitalization. Patient has been comfortable and without complaints. Repeat urine cultures have been negative. Patient appears comfortable. Would like to complete 7 days of antibiotic therapy... that can be done in hospital or nursing facility. Thank you for allowing me to participate in the care of the patient, we will follow with you.
--- NOTE | 2017-03-10 17:49 | CP.PCM.DIS ---
Provider - Provider Date of Admission: 03/07/17 00:48 Attending physician: Cierra Lilly MD Consults: ID - Dr. Busby Pulmonary - Dr. Fortune Time Spent in preparation of Discharge (in minutes): 35 Diagnosis - Discharge Diagnosis (1) Hypokalemia Status: Acute (2) Dehydration Status: Acute (3) Abnormal LFTs (liver function tests) Status: Acute (4) Leukocytosis Status: Acute (5) Urinary tract infection Status: Acute (6) Altered mental status Status: Acute (7) Pneumonia Status: Acute Hospital Course - Lab Results Lab Results: Micro Results 03/09/17 14:00 Urine,Clean Catch Urine Culture - Final No Growth (<1,000 CFU/ML) Most Recent Lab Values WBC 8.7 10^3/ul (4.5-11.0) 03/09/17 07:00 RBC 3.59 10^6/uL (3.5-6.1) 03/09/17 07:00 Hgb 9.5 g/dL (14.0-18.0) L 03/09/17 07:00 Hct 29.9 % (42.0-52.0) L 03/09/17 07:00 MCV 83.3 fl (80.0-105.0) 03/09/17 07:00 MCH 26.5 pg (25.0-35.0) 03/09/17 07:00 MCHC 31.8 g/dl (31.0-37.0) 03/09/17 07:00 RDW 15.1 % (11.5-14.5) H 03/09/17 07:00 Plt Count 227 10^3/uL (120.0-450.0) 03/09/17 07:00 MPV 10.6 fl (7.0-11.0) 03/09/17 07:00 Gran % 82.5 % (50.0-68.0) H 03/06/17 21:15 Lymph % (Auto) 9.1 % (22.0-35.0) L 03/06/17 21:15 [place] % (Auto) 8.2 % (1.0-6.0) H 03/06/17 21:15 Eos % (Auto) 0.1 % (1.5-5.0) L 03/06/17 21:15 Baso % (Auto) 0.1 % (0.0-3.0) 03/06/17 21:15 Gran # 13.81 (1.4-6.5) H 03/06/17 21:15 Lymph # 1.5 (1.2-3.4) 03/06/17 21:15 Lares # 1.4 (0.1-0.6) H 03/06/17 21:15 Eos # 0.0 (0.0-0.7) 03/06/17 21:15 Baso # 0.01 K/mm3 (0.0-2.0) 03/06/17 21:15 PT 14.1 SECONDS (9.4-12.5) H 03/06/17 21:15 INR 1.23 (0.93-1.08) H 03/06/17 21:15 APTT 34.7 Seconds (25.1-36.5) 03/06/17 21:15 pO2 53 mm/Hg (30-55) 03/06/17 21:15 VBG pH 7.39 (7.32-7.43) 03/06/17 21:15 VBG pCO2 40.0 (40-60) 03/06/17 21:15 VBG HCO3 24.2 mmol/l (21-28) 03/06/17 21:15 VBG Total CO2 25.4 mmol.L (22-28) 03/06/17 21:15 VBG O2 Sat (Calc) 92.0 % (40-65) H 03/06/17 21:15 VBG Base Excess -0.7 mmol/L (0.0-2.0) L 03/06/17 21:15 VBG Potassium 3.0 mmol/L (3.6-5.2) L 03/06/17 21:15 Sodium 140.0 mmol/L (132-148) 03/06/17 21:15 Chloride 111.0 mmol/L (98-107) H 03/06/17 21:15 Glucose 111 mg/dl (75-110) H 03/06/17 21:15 Lactate 1.0 mmol/L (0.7-2.1) 03/06/17 21:15 FiO2 21.0 % 03/06/17 21:15 Sodium 142 mmol/L (132-148) 03/10/17 06:45 Potassium 3.3 mmol/L (3.6-5.0) L 03/10/17 06:45 Chloride 109 mmol/L (98-107) H 03/10/17 06:45 Carbon Dioxide 24 mmol/L (21-33) 03/10/17 06:45 Anion Gap 12 (10-20) 03/10/17 06:45 BUN 9 mg/dL (7-21) 03/10/17 06:45 Creatinine 0.5 mg/dl (0.8-1.5) L 03/10/17 06:45 Est GFR ( Amer) > 60 03/10/17 06:45 Est GFR (Non-Af Amer) > 60 03/10/17 06:45 Random Glucose 90 mg/dL (70-110) 03/10/17 06:45 Hemoglobin A1c 6.2 % (4.2-6.5) 03/08/17 06:20 Calcium 8.3 mg/dL (8.4-10.5) L 03/10/17 06:45 Phosphorus 3.4 mg/dL (2.5-4.5) 03/06/17 21:15 Magnesium 2.6 mg/dL (1.7-2.2) H 03/08/17 06:20 Iron 20 ug/dL (45-180) L 03/08/17 06:20 TIBC 154 ug/dL (261-462) L 03/08/17 06:20 % Saturation 13 % (20-55) L 03/08/17 06:20 Total Bilirubin 0.6 mg/dL (0.2-1.3) 03/06/17 21:15 AST 94 U/L (17-59) H 03/06/17 21:15 ALT 90 U/L (7-56) H 03/06/17 21:15 Alkaline Phosphatase 139 U/L (38-126) H 03/06/17 21:15 Total Protein 7.2 g/dL (5.8-8.3) 03/06/17 21:15 Albumin 3.6 g/dL (3.0-4.8) 03/06/17 21:15 Globulin 3.6 gm/dL 03/06/17 21:15 Albumin/Globulin Ratio 1.0 (1.1-1.8) L 03/06/17 21:15 Triglycerides 55 mg/dL (35-160) 03/08/17 06:20 Cholesterol 66 mg/dL (130-200) L 03/08/17 06:20 LDL Cholesterol Direct < 30 mg/dL (0-129) 03/08/17 06:20 HDL Cholesterol 23 mg/dL (29-60) L 03/08/17 06:20 Vitamin B12 > 1000 pg/mL (239-931) H 03/08/17 06:20 Folate 9.1 ng/mL 03/08/17 06:20 TSH 3rd Generation 1.79 mIU/mL (0.46-4.68) 03/08/17 06:20 Venous Blood Potassium 3.0 mmol/L (3.6-5.2) L 03/06/17 21:15 Urine Color Yellow (YELLOW) 03/06/17 23:00 Urine Appearance Cloudy (CLEAR) 03/06/17 23:00 Urine pH 8.5 (4.7-8.0) 03/06/17 23:00 Ur Specific [place] 1.010 (1.005-1.035) 03/06/17 23:00 Urine Protein 100 mg/dL (<30 mg/dL) H 03/06/17 23:00 Urine Glucose (UA) Negative mg/dL (NEGATIVE) 03/06/17 23:00 Urine Ketones Trace mg/dL (NEGATIVE) H 03/06/17 23:00 Urine Blood Small (NEGATIVE) H 03/06/17 23:00 Urine Nitrate Positive (NEGATIVE) H 03/06/17 23:00 Urine Bilirubin Negative (NEGATIVE) 03/06/17 23:00 Urine Urobilinogen 1.0 E.U./dL (<1 E.U./dL) H 03/06/17 23:00 Ur Leukocyte Esterase Moderate [place]/uL (NEGATIVE) H 03/06/17 23:00 Urine RBC 0 - 2 /hpf (0-2) 03/06/17 23:00 Urine WBC 5 - 10 /hpf (0-6) 03/06/17 23:00 Ur Epithelial Cells 0 - 2 /hpf (0-5) 03/06/17 23:00 Amorphous Sediment Large 03/06/17 23:00 Urine Bacteria Many (NEG) 03/06/17 23:00 - Hospital Course Hospital Course: 86 yr male from [facility] w/ history of CVA ( L sided weakness), HTN, GERD, sizure disorder, CHF, & COPD. He was sent to [facility] for fever of 103.2. Pt treated successfully w/ IV vanco, zosyn for UTI. Stable for discharge back to facility. Reviewed: CT chest = faint multifocal subsegmental likely infectious/inflammatory CT lumbar spine = Severe disc degeneration L3-L4-L5, laminectomy from L3-L5, no obvious fluid collection to suggest abscess CXR = WNL ECG = ABNORMAL - sinus tachycardia, nonspecific ST abnormality, Q wave in III, avf - Date & Time of H&P Date of H&P: 03/10/17 Time of H&P: 11:30 Discharge Exam - Head Exam Head Exam: ATRAUMATIC, NORMOCEPHALIC - Eye Exam Eye Exam: EOMI, Normal appearance, PERRL - ENT Exam ENT Exam: Mucous Membranes Moist - Neck Exam Neck exam: Full Rom, Normal Inspection - Respiratory Exam Respiratory Exam: Clear to PA & Lateral, NORMAL BREATHING PATTERN - Cardiovascular Exam Cardiovascular Exam: +S1, +S2 - GI/Abdominal Exam GI & Abdominal Exam: Firm, Normal Bowel Sounds - Extremities Exam Additional comments: L arm contracture - Neurological Exam Neurological exam: Alert, Normal Gait, Oriented x3 - Psychiatric Exam Psychiatric exam: Normal Affect, Normal Mood - Skin Skin Exam: Dry, Intact, Normal Color, Warm Discharge Plan - Discharge Medications Prescriptions: Piperacill/Tazo 3.375gm in Dex [Zosyn 3.375 Gm IV] 3.375 gm IVPB Q6H 3 Days bag Vancomycin 750mg [Vancomycin 750 mg in NS] 750 mg IVPB Q12H 3 Days bag - Follow Up Plan Condition: FAIR Disposition: NURSING FACILITY MEDICAID CERT Instructions: Heart Failure (GEN), Urinary Tract Infection in Men (GEN), How to Turn a Person in Bed (DC), How to Prevent Pressure Ulcers (DC), Leukocytosis (DC) Additional Instructions: Patient discharged to [facility]
--- NOTE | 2017-03-11 01:22 | PN ---
DATE: 03/10/2017 REFERRING PHYSICIAN: Cierra Lilly MD SUBJECTIVE: He is lying in the bed. Night was unremarkable. Feels much better. Cough better. No nausea. No vomiting. No diarrhea. No leg pain. No leg swelling. OBJECTIVE GENERAL: In no acute distress. VITAL SIGNS: Temperature is 98, heart rate is 73, respiratory rate is 20, blood pressure 135/75, pulse oximetry is 96% on room air. HEENT: Moist mucous membrane. Crowded airway. NECK: Supple. No JVD. LUNGS: Have a fair airflow with few rhonchi. HEART: S1 and S2. ABDOMEN: Soft, nontender. No organomegaly. EXTREMITIES: No edema. NEUROLOGIC: Awake, alert, and follows simple commands. LABORATORY DATA: Reviewed and noted. Sodium 142, potassium 2.3, chloride 109, bicarbonate 24, BUN 9, creatinine 0.5, glucose is 90, and calcium is 8.3. MEDICATIONS: Reviewed and noted. No new changes in medication reported since yesterday. IMPRESSION AND PLAN: Healthcare-associated pneumonia, urinary tract infection, history of stroke, hypertension, hyperlipidemia, may have sleep apnea syndrome, oropharyngeal dysphagia. From pulmonary point of view, doing okay. Antibiotics as per Infectious Disease. Keep head at 45 degrees. Aspiration precaution. Gastric prophylaxis and deep venous thrombosis prophylaxis. Fall precaution. Riddhi Fortune MD
[2017-03-11 09:29] LABS: LEVETIRACETAM 18.9 mcg/mL
== END 2017-03-10 18:43 | DRG 871 ==
LOC: ED 20:41 → ERH 03-07 00:48 → 5RNO 03-07 02:28
PROVIDERS: ADMIT Internal Medicine; ATTEND Internal Medicine
DX: A41.9 Sepsis, unspecified organism (principal); J18.9 Pneumonia, unspecified organism; I11.0 Hypertensive heart disease with heart failure; E87.8 Other disorders of electrolyte and fluid balance, not elsewhere classified; I50.9 Heart failure, unspecified; I69.354 Hemiplegia and hemiparesis following cerebral infarction affecting left non-dominant side; J44.0 Chronic obstructive pulmonary disease with (acute) lower respiratory infection; N39.0 Urinary tract infection, site not specified; E83.41 Hypermagnesemia; E86.0 Dehydration; D50.9 Iron deficiency anemia, unspecified; E78.5 Hyperlipidemia, unspecified; E83.51 Hypocalcemia; E87.6 Hypokalemia; K21.9 Gastro-esophageal reflux disease without esophagitis; M51.36 Other intervertebral disc degeneration, lumbar region; Y95 Nosocomial condition; Z79.82 Long term (current) use of aspirin; Z79.899 Other long term (current) drug therapy

== ENCOUNTER 2017-04-15 20:11 | Inpatient (IN) | payer MEDICARE, MEDICAID ==
--- NOTE | 2017-04-15 21:45 | ED PDOC ---
Arrival/HPI - General Chief Complaint: Weakness/Neurological Deficit Time Seen by Provider: 04/15/17 20:15 Historian: Patient - History of Present Illness Narrative History of Present Illness (Text): 04/15/17 21:42 An 86 year old male, whose past medical history includes left sided CVA, is brought into the emergency department via EMS from [facility] complaining of generalized weakness and decreased appetite. The patient denies fevers, chills, headache, dizziness, chest pain, shortness of breath, dyspnea on exertion, cough, abdominal pain, nausea, vomiting, diarrhea, back pain, neck pain, urinary/bowel changes, or any other complaint. PMD: Dr. Halie Lilly Time/Duration: Other (2 weeks) Symptom Onset: Sudden Symptom Course: Unchanged Activities at Onset: Rest, Light Context: Home Past Medical History - Provider Review Nursing Documentation Reviewed: Yes - Infectious Disease Hx of Infectious Diseases: None - Cardiac Hx Hypertension: Yes Hx Pacemaker: No - Pulmonary Hx Pneumonia: Yes Other/Comment: sepsis - Neurological HX Cerebrovascular Accident: Yes (left sided weakness) Hx Seizures: Yes - HEENT Hx HEENT Disorder: No - Renal Hx Renal Failure: No - Endocrine/Metabolic Hx Diabetes Mellitus Type 1: No Hx Diabetes Mellitus Type 2: No Hx Hypothyroidism: No - Hematological/Oncological Hx Cancer: No - Integumentary Hx Dermatological Disorder: No - Musculoskeletal/Rheumatological Hx Falls: Yes - Gastrointestinal Hx Gastroesophageal Reflux: No - Genitourinary/Gynecological Hx Genitourinary Disorders: No - Psychiatric Hx Psychophysiologic Disorder: No Hx Substance Use: No - Surgical History Hx Mastectomy: No - Anesthesia Hx Anesthesia: No Hx Anesthesia Reactions: No Hx Malignant Hyperthermia: No Family/Social History - Physician Review Nursing Documentation Reviewed: Yes Family/Social History: No Known Family HX Smoking Status: Unknown If Ever Smoked Hx Alcohol Use: No Hx Substance Use: No Allergies/Home Meds Allergies/Adverse Reactions: Allergies No Known Allergies Allergy (Verified 02/21/16 13:41) Home Medications: Home Meds Medication Instructions Recorded Confirmed Atorvastatin [Lipitor] 40 mg PO HS 01/01/16 04/15/17 Aspirin [Ecotrin] 325 mg PO DAILY 02/21/16 04/15/17 Potassium Chloride [K-Dur 20 mEq 40 meq PO DAILY 04/15/17 04/15/17 ER Tab] Review of Systems - Physician Review All systems were reviewed & negative as marked: Yes - Review of Systems Constitutional: absent: Fevers, Night Sweats Respiratory: absent: SOB, Cough Cardiovascular: absent: Chest Pain, MAYS Gastrointestinal: Appetite Changes (Decreased appetite). absent: Abdominal Pain , Stool Changes, Diarrhea, Nausea, Vomiting Genitourinary Male: absent: Urinary Output Changes Musculoskeletal: absent: Back Pain, Neck Pain Neurological: Other (Generalized weakness). absent: Headache, Dizziness Physical Exam Vital Signs Reviewed: Yes Vital Signs Temp Pulse Resp BP Pulse Ox 04/16/17 02:15 19 99 04/16/17 01:16 99.0 F 110 H 17 138/77 98 Appearance: Positive for: Well-Appearing, Non-Toxic, Comfortable Pain Distress: None Mental Status: Positive for: Alert and Oriented X 3 - Systems Exam Head: Present: Atraumatic, Normocephalic Pupils: Present: PERRL Extroacular Muscles: Present: EOMI Conjunctiva: Present: Normal Mouth: Present: Moist Mucous Membranes Neck: Present: Normal Range of Motion Respiratory/Chest: Present: Clear to Auscultation, Good Air Exchange. No: Respiratory Distress, Accessory Muscle Use Cardiovascular: Present: Regular Rate and Rhythm, Normal S1, S2. No: Murmurs Abdomen: Present: Normal Bowel Sounds. No: Tenderness, Distention, Peritoneal Signs Back: Present: Normal Inspection Upper Extremity: Present: Normal Inspection. No: Cyanosis, Edema Lower Extremity: Present: Normal Inspection. No: Edema Neurological: Present: GCS=15, CN II-XII Intact, Speech Normal Skin: Present: Warm, Dry, Normal Color. No: Rashes Psychiatric: Present: Alert, Oriented x 3, Normal Insight, Normal Concentration Medical Decision Making ED Course and Treatment: 04/15/17 21:44 Impression: An 86 year old male is brought into the emergency department from [place] [facility] complaining of decreased appetite and generalized weakness. Plan: -- EKG -- Labs -- Chest X-ray -- Blood/ Urine Culture -- Urinalysis -- Reassess and disposition Progress Notes: EK04/15/17 21:46 Ordered, reviewed, and independently interpreted the EKG. Rate : 99 BPM Rhythm : NSR Interpretation : Non- specific ST segments 04/15/17 22:08: Chest X-ray, read and interpreted by me shows no acute disease case d\w dr lilly will admit. - Lab Interpretations Microbiology Results: Microbiology Results 04/15/17 21:43 Blood-Venous Blood Culture - Preliminary NO GROWTH AFTER 24 HOURS Lab Results: 04/15/17 21:43 04/15/17 21:43 Lab Results 04/15/17 21:43: Sodium 172 H* D, Potassium 3.0 L, Chloride 126 H, Carbon Dioxide 26, Anion Gap 22 H, BUN 62 H, Creatinine 1.7 H, Est GFR ( Amer) 47, Est GFR (Non-Af Amer) 38, Random Glucose 95, Calcium 9.7, Total Bilirubin 0.5, AST 29, ALT 21, Alkaline Phosphatase 184 H D, Troponin I 0.11 D, Total Protein 8.2, Albumin 4.0, Globulin 4.2, Albumin/Globulin Ratio 1.0 L 04/15/17 21:43: WBC 9.6, RBC 5.10, Hgb 13.4 L D, Hct 45.2, MCV 88.6 D, MCH 26.3 , MCHC 29.6 L, RDW 16.7 H, Plt Count 110 L, Gran % 69.9 H, Lymph % (Auto) 19.8 L , [place] % (Auto) 9.3 H, Eos % (Auto) 0.8 L, Baso % (Auto) 0.2, Gran # 6.69 H, Lymph # (Auto) 1.9, [place] # (Auto) 0.9 H, Eos # (Auto) 0.1, Baso # (Auto) 0.02 I have reviewed the lab results: Yes - RAD Interpretation Radiology Orders: 04/15/17 21:02 CHEST PORTABLE [RAD] Stat - EKG Interpretation Interpreted by ED Physician: Yes Type: 12 lead EKG - Medication Orders Current Medication Orders: Acetaminophen (Tylenol 325mg Tab) 650 mg PO Q4H PRN PRN Reason: Pain, Mild (1-3) Amlodipine Besylate (Norvasc) 10 mg PO DAILY [facility] Last Admin: 04/16/17 14:29 Dose: Not Given Non-Admin Reason: NPO Aspirin (Ecotrin) 325 mg PO DAILY [facility] Last Admin: 04/16/17 14:29 Dose: Not Given Non-Admin Reason: NPO Atorvastatin Calcium (Lipitor) 40 mg PO HS [facility] Last Admin: 04/16/17 21:49 Dose: Not Given Non-Admin Reason: NPO Cyanocobalamin (Vitamin B12 1000 Mcg Tab) 1,000 mcg PO DAILY [facility] Last Admin: 04/16/17 14:28 Dose: Not Given Non-Admin Reason: NPO Docusate Sodium (Colace) 100 mg PO DAILY [facility] Last Admin: 04/16/17 14:28 Dose: Not Given Non-Admin Reason: NPO Potassium Chloride 20 meq/ (Sodium Chloride) 1,010 mls @ 200 mls/hr IV .Q5H3M [facility]ARD Potassium Chloride (Potassium Chloride 20 Meq/100 Ml) 20 meq in 100 mls @ 50 mls/hr IVPB Q2H [facility] Stop: 04/17/17 13:14 Levetiracetam (Keppra) 500 mg PO BID [facility] Last Admin: 04/16/17 17:02 Dose: Not Given Non-Admin Reason: NPO Magnesium Hydroxide (Milk Of Magnesia) 30 ml PO HS PRN PRN Reason: Constipation Discontinued Medications Sodium Chloride (Sodium Chloride 0.9%) 1,000 mls @ 80 mls/hr IV .[id number] HOWARD Sodium Chloride (Sodium Chloride 0.9%) 1,000 mls @ 100 mls/hr IV .Q10H [facility] Potassium Chloride (Potassium Chloride 20 Meq/100 Ml) 20 meq in 100 mls @ 50 mls/hr IVPB ONCE ONE Stop: 04/16/17 01:48 Last Admin: 04/16/17 00:38 Dose: 50 mls/hr eMAR Start Stop Document 04/16/17 00:38 [email or web address] (Rec: 04/16/17 00:38 [id number]) Intravenous Solution Start Date 04/16/17 Start Time 00:38 End Date 04/16/17 Potassium Chloride 20 meq/ (Sodium Chloride) 1,010 mls @ 120 mls/hr IV .Q8H25M [facility]ARD Last Admin: 04/16/17 01:41 Dose: 120 mls/hr eMAR Start Stop Document 04/16/17 01:41 [email or web address] (Rec: 04/16/17 01:42 CAST [id number]) Intravenous Solution Start Date 04/16/17 Start Time 01:41 End Date 04/16/17 Sodium Chloride (Sodium Chloride 0.45%) 1,000 mls @ 100 mls/hr IV .Q10H HOWARD Last Admin: 04/16/17 09:49 Dose: 100 mls/hr eMAR Start Stop Document 04/16/17 09:49 MJO (Rec: 04/16/17 09:49 M[id number]) Intravenous Solution Start Date 04/16/17 Start Time 09:49 Potassium Chloride (Potassium Chloride 20 Meq/100 Ml) 20 meq in 100 mls @ 50 mls/hr IVPB ONCE ONE Stop: 04/16/17 11:32 Last Admin: 04/16/17 10:38 Dose: 50 mls/hr eMAR Start Stop Document 04/16/17 10:38 MJO (Rec: 04/16/17 10:38 MJO [id number]) Intravenous Solution Start Date 04/16/17 Start Time 10:38 End Date 04/16/17 End time 12:38 Total Infusion Time 120 Sodium Chloride (Sodium Chloride 0.45%) 1,000 mls @ 200 mls/hr IV .Q5H [facility] Last Admin: 04/17/17 06:22 Dose: 200 mls/hr eMAR Start Stop Document 04/17/17 06:22 IMT (Rec: 04/17/17 06:22 IMT [id number]) Intravenous Solution Start Date 04/17/17 Start Time 06:22 Potassium Chloride (Potassium Chloride 10 Meq/100 Ml) 10 meq in 100 mls @ 50 mls/hr IVPB Q2H [facility] Stop: 04/17/17 03:14 Last Admin: 04/17/17 02:43 Dose: 50 mls/hr eMAR Start Stop Document 04/17/17 02:43 IMT (Rec: 04/17/17 02:43 IMT [id number]) Intravenous Solution Start Date 04/17/17 Start Time 02:43 End Date 04/17/17 End time 04:43 Total Infusion Time 120 - Scribe Statement The provider has reviewed the documentation as recorded by the Heather Tijerina Provider Scribe Attestation: All medical record entries made by the Scribe were at my direction and personally dictated by me. I have reviewed the chart and agree that the record accurately reflects my personal performance of the history, physical exam, medical decision making, and the department course for this patient. I have also personally directed, reviewed, and agree with the discharge instructions and disposition. Disposition/Present on Arrival - Present on Arrival Any Indicators Present on Arrival: No History of DVT/PE: No History of Uncontrolled Diabetes: No Urinary Catheter: No History of Decub. Ulcer: No History Surgical Site Infection Following: None - Disposition Have Diagnosis and Disposition been Completed?: Yes Diagnosis: Acute kidney injury, Dehydration Disposition: HOSPITALIZED Disposition Time: 23:00 Patient Problems: Current Active Problems Problem Status Onset Acute kidney injury Acute Dehydration Acute Hypernatremia Acute HTN (hypertension) Chronic Condition: FAIR
[2017-04-15 22:15] LABS: BASO # 0.02 K/mm3 (0.0-2.0); BASO % 0.2 % (0.0-3.0); EOS # 0.1 (0.0-0.7); EOS % 0.8 % (1.5-5.0); GRAN # 6.69 (1.4-6.5); GRAN % 69.9 % (50.0-68.0); HEMOGLOBIN 13.4 g/dL (14.0-18.0); LYMPH # 1.9 (1.2-3.4); LYMPH % 19.8 % (22.0-35.0); MEAN CELL VOLUME 88.6 fl (80.0-105.0); MEAN CORPUSCULAR HEMOGLOBIN 26.3 pg (25.0-35.0); MEAN CORPUSCULAR HGB CONC 29.6 g/dl (31.0-37.0); MONO # 0.9 (0.1-0.6); MONO % 9.3 % (1.0-6.0); RED CELL DISTRIBUTION WIDTH 16.7 % (11.5-14.5); WHITE BLOOD COUNT 9.6 10^3/ul (4.5-11.0)
[2017-04-15 22:35] LABS: TROPONIN I 0.11 ng/mL
[2017-04-15 22:40] LABS: CALCIUM 9.7 mg/dL (8.4-10.5)
[2017-04-15] MEDS ORDERED: Sodium Chloride 0.9% 1,000 ML IV SCH ×2 (22:45→22:59)
[2017-04-15 23:13] LABS: PLATELET COUNT 110 10^3/uL (120.0-450.0)
[2017-04-16 05:23] VITALS: BMI 23.8
--- NOTE | 2017-04-16 09:23 | RAD ---
HISTORY: weakness COMPARISON: Portable chest 03/06/2017. FINDINGS: LUNGS: Improved inspiratory volume is appreciated bilaterally. No acute infiltrate identified bilaterally. PLEURA: No significant pleural effusion identified, no pneumothorax apparent. CARDIOVASCULAR: Normal. OSSEOUS STRUCTURES: No significant abnormalities. VISUALIZED UPPER ABDOMEN: Normal. OTHER FINDINGS: None. IMPRESSION: Improved inspiratory effort. No acute infiltrate or pleural effusion identified bilaterally. No acute cardiovascular changes appreciated.
[2017-04-16 09:30] LABS: CALCIUM 9.1 mg/dL (8.4-10.5)
[2017-04-16] MEDS ORDERED: Magnesium Hydroxide Susp 30 ml UD PO PRN (09:36)
[2017-04-16] MEDS ORDERED: Sodium Chloride 0.45% 1,000 ML IV SCH ×2 (09:45→22:00)
--- NOTE | 2017-04-16 10:34 | CARD ---
APPROVED REPORT EKG Measurement Heart [id number] <Conclusion> Normal sinus rhythm NSSTW changes Prolonged QT
[2017-04-16] MEDS: Aspirin 325 mg EC Tablets PO SCH ×2 (10:39→14:29)
[2017-04-16 21:38] LABS: CALCIUM 9.1 mg/dL (8.4-10.5)
--- NOTE | 2017-04-16 23:05 | CP.PCM.CON ---
History of Present Illness - History of Present Illness History of Present Illness: 86 yo M w/ pmh of htn, CHF w/ diastolic dysfunction, COPD, s/p CVA w/ L sided residual weakness, seizure disorder, discharged last month after UTI sepsis, sent from [place] due to increased lethargy and decreased PO intake, found to be severely hypernatremic for which nerphology is being consulted; Patient is able to give some history but not aware of why he was sent to hospital (says "to be checked out"); reports feeling thirsty but not being given enough water; per nursing staff, he is reportedly pocketing food in his mouth although he denies any difficulty swallowing; Patient otherwise denies any nausea, vomiting or diarrhea; he denies any change in urination; no diuretics listed on patient's outpatient med list; Unclear if patient is ambulatory at all at baseline; Review of Systems - Constitutional Additional comments: decreased PO intake; - EENT Nose/Mouth/Throat: Dysphagia. absent: Odynophagia - Cardiovascular Cardiovascular: absent: Chest Pain, Palpitations - Respiratory Respiratory: absent: Cough, Dyspnea - Gastrointestinal Gastrointestinal: As Per HPI. absent: Vomiting - Genitourinary Genitourinary: As Per HPI. absent: Dysuria - Musculoskeletal Musculoskeletal: absent: Arthralgias, Back Pain - Integumentary Integumentary: absent: Pruritus, Rash - Neurological Neurological: absent: Numbness - Psychiatric Psychiatric: absent: Abnormal Sleep Pattern Past Patient History - Infectious Disease Hx of Infectious Diseases: None - Past Medical History & Family History Pertinent Family History: unknown - Past Social History Smoking Status: Unknown If Ever Smoked - CARDIAC Hx Hypertension: Yes - PULMONARY Hx Pneumonia: Yes - NEUROLOGICAL HX Cerebrovascular Accident: Yes (L side weakness) - HEENT Hx HEENT Problems: No - RENAL Hx Renal Failure: No - ENDOCRINE/METABOLIC Hx Diabetes Mellitus Type 1: No Hx Diabetes Mellitus Type 2: No Hx Hypothyroidism: No - HEMATOLOGICAL/ONCOLOGICAL Hx Cancer: No - INTEGUMENTARY Hx Dermatological Problems: No - MUSCULOSKELETAL/RHEUMATOLOGICAL Hx Falls: Yes (when not known) - GASTROINTESTINAL Hx Gastroesophageal Reflux: No - GENITOURINARY/GYNECOLOGICAL Hx Genitourinary Disorders: No - PSYCHIATRIC Hx Psychophysiologic Disorder: No Hx Substance Use: No - SURGICAL HISTORY Hx Mastectomy: No - ANESTHESIA Hx Anesthesia: No Hx Anesthesia Reactions: No Hx Malignant Hyperthermia: No Meds Allergies/Adverse Reactions: Allergies Allergy/AdvReac Type Severity Reaction Status Date / Time No Known Allergies Allergy Verified 02/21/16 13:41 - Medications Medications: Current Medications Acetaminophen (Tylenol 325mg Tab) 650 mg PO Q4H PRN PRN Reason: Pain, Mild (1-3) Amlodipine Besylate (Norvasc) 10 mg PO DAILY [facility] Last Admin: 04/16/17 14:29 Dose: Not Given Aspirin (Ecotrin) 325 mg PO DAILY [facility] Last Admin: 04/16/17 14:29 Dose: Not Given Atorvastatin Calcium (Lipitor) 40 mg PO HS [facility] Last Admin: 04/16/17 21:49 Dose: Not Given Cyanocobalamin (Vitamin B12 1000 Mcg Tab) 1,000 mcg PO DAILY [facility] Last Admin: 04/16/17 14:28 Dose: Not Given Docusate Sodium (Colace) 100 mg PO DAILY [facility] Last Admin: 04/16/17 14:28 Dose: Not Given Sodium Chloride (Sodium Chloride 0.45%) 1,000 mls @ 200 mls/hr IV .Q5H [facility] Levetiracetam (Keppra) 500 mg PO BID [facility] Last Admin: 04/16/17 17:02 Dose: Not Given Magnesium Hydroxide (Milk Of Magnesia) 30 ml PO HS PRN PRN Reason: Constipation Physical Exam - Constitutional Appears: Non-toxic, No Acute Distress - Eye Exam Eye Exam: absent: Scleral icterus - ENT Exam ENT Exam: Mucous Membranes Moist - Respiratory Exam Respiratory Exam: Clear to Auscultation Bilateral. absent: Respiratory Distress - Cardiovascular Exam Cardiovascular Exam: RRR, +S1, +S2 - GI/Abdominal Exam GI & Abdominal Exam: Soft. absent: Distended, Tenderness - Exam Exam: absent: Bladder Distension - Extremities Exam Extremities exam: Positive for: pedal pulses present Additional comments: no leg edema; - Neurological Exam Neurological exam: Alert, Oriented x3 Additional comments: no numbness of feet; - Psychiatric Exam Psychiatric exam: Normal Affect, Normal Mood - Skin Skin Exam: Normal Color, Warm Results - Vital Signs Recent Vital Signs: Last Vital Signs Temp 98.4 F 04/16/17 16:00 Pulse 90 04/16/17 16:00 Resp 20 04/16/17 16:00 BP 122/72 04/16/17 16:00 Pulse Ox 96 04/16/17 16:00 - Labs Result Diagrams: 04/15/17 21:43 04/16/17 21:06 Labs: Laboratory Results - last 24 hr 04/16/17 04/16/17 04/16/17 08:30 09:00 21:06 Sodium 173 H* 173 H* Potassium 3.3 L 3.2 L Chloride 132 H 132 H Carbon Dioxide 26 27 Anion Gap 18 18 BUN 60 H 54 H Creatinine 1.6 H 1.5 Est GFR ( Amer) 50 54 Est GFR (Non-Af Amer) 41 44 Random Glucose 89 84 Calcium 9.1 9.1 Magnesium 2.9 H - Imaging and Cardiology Chest x-ray Status: Image reviewed by me Additional comment: lungs clear Assessment & Plan (1) Hypernatremia Assessment and Plan: Severe hypernatremia with 11L free water deficit; no history of GI losses or diuretic use to explain such profound deficit; patient does report feeling thirsty but may still have some neurologic deficit involving thirst center; relatively intact mental status indicates that hypernatremia has ensued over a prolonged period of time and needs to be corrected slowly to avoid cerebral edema (goal is ~10 meq per day decrease in serum Na); -increasing 1/2NS to 200 cc/hr (likely won't be sufficient but we need to correct both volume and free water deficit); -obtaining head CT -place gonzalez and monitor I/O -obtain UA and urine lytes; Status: Acute (2) Acute kidney injury Assessment and Plan: Likely pre-renal etiology in the setting of decreased PO intake; IVF as above; Status: Acute (3) HTN (hypertension) Assessment and Plan: Currently normotensive; can hold BP meds for now (amlodipine); Status: Chronic (4) Hypokalemia Assessment and Plan: Mild but persistent in the setting of secondary hyperaldo state from volume depletion and getting IVF; replenish prn; Status: Acute
[2017-04-17 01:36] LABS: URINE BILIRUBIN NEGATIVE (NEGATIVE); URINE BLOOD TRACE-INTACT (NEGATIVE); URINE GLUCOSE (UA) NEGATIVE (NEGATIVE); URINE LEUKOCYTE ESTERASE SMALL Leu/uL (NEGATIVE); URINE NITRATE POSITIVE (NEGATIVE); URINE PROTEIN TRACE mg/dL (<30 mg/dL); URINE UROBILINOGEN 0.2 E.U./dL (<1 E.U./dL)
[2017-04-17 01:38] LABS: URINE APPEARANCE SLIGHT-CLOUDY (CLEAR); URINE COLOR YELLOW (YELLOW)
[2017-04-17 02:22] LABS: CREATININE,RANDOM URINE 125 mg/dL; URINE EPITHELIAL CELLS 0 - 2 /hpf (0-5); URINE RBC 0 - 2 /hpf (0-2); URINE WBC 0 - 2 /hpf (0-6)
[2017-04-17 09:00] LABS: BLOOD UREA NITROGEN 48 mg/dL (7-21); CALCIUM 8.6 mg/dL (8.4-10.5); GFR AFRICAN-AMERICAN > 60; GFR NON-AFRICAN AMERICAN 52
[2017-04-17] MEDS: Aspirin 325 mg EC Tablets PO SCH (09:57)
--- NOTE | 2017-04-17 15:54 | CT ---
PROCEDURE: CT HEAD WITHOUT CONTRAST. HISTORY: rule out CVA, intracranial lesion COMPARISON: 02/21/2016 TECHNIQUE: Axial computed tomography images were obtained through the head/brain without intravenous contrast. Radiation dose: Total exam DLP = 889.88 mGy-cm. This CT exam was performed using one or more of the following dose reduction techniques: Automated exposure control, adjustment of the mA and/or kV according to patient size, and/or use of iterative reconstruction technique. FINDINGS: HEMORRHAGE: No intracranial hemorrhage. BRAIN: No mass effect or edema. Mild diffuse atrophy. Moderate periventricular white matter lucency consistent with chronic microvascular ischemic change. Old infarct right pope radiata. VENTRICLES: Mild ex vacuo dilatation of the lateral ventricles. No hydrocephalus. CALVARIUM: Unremarkable. PARANASAL SINUSES: Unremarkable as visualized. No significant inflammatory changes. MASTOID AIR CELLS: Unremarkable as visualized. No inflammatory changes. OTHER FINDINGS: None. IMPRESSION: No evidence of acute infarct. Age-appropriate involutional change.
--- NOTE | 2017-04-17 19:16 | CP.PCM.PN ---
Subjective - Date & Time of Evaluation Date of Evaluation: 04/17/17 Time of Evaluation: 11:00 - Subjective Subjective: Seen when being evaluated by speech therapist; is better able to swallow today but still needing honey thickened liquid; patient desiring to start PO intake also; Objective - Vital Signs/Intake and Output Vital Signs (last 24 hours): Temp Pulse Resp BP Pulse Ox 97.8 F 79 20 108/65 100 04/17/17 18:54 04/17/17 18:54 04/17/17 18:54 04/17/17 18:54 04/17/17 18:54 Intake and Output: 04/17/17 04/18/17 18:59 06:59 Output Total 350 Balance -350 - Medications Medications: Current Medications Acetaminophen (Tylenol 325mg Tab) 650 mg PO Q4H PRN PRN Reason: Pain, Mild (1-3) Amlodipine Besylate (Norvasc) 10 mg PO DAILY [facility] Last Admin: 04/17/17 09:57 Dose: 10 mg Aspirin (Ecotrin) 325 mg PO DAILY [facility] Last Admin: 04/17/17 09:57 Dose: 325 mg Atorvastatin Calcium (Lipitor) 40 mg PO HS [facility] Last Admin: 04/16/17 21:49 Dose: Not Given Cyanocobalamin (Vitamin B12 1000 Mcg Tab) 1,000 mcg PO DAILY [facility] Last Admin: 04/17/17 09:57 Dose: 1,000 mcg Docusate Sodium (Colace) 100 mg PO DAILY [facility] Last Admin: 04/17/17 09:56 Dose: 100 mg Potassium Chloride 20 meq/ (Sodium Chloride) 1,010 mls @ 200 mls/hr IV .Q5H3M [facility] Levetiracetam (Keppra) 500 mg PO BID [facility] Last Admin: 04/17/17 18:07 Dose: 500 mg Magnesium Hydroxide (Milk Of Magnesia) 30 ml PO HS PRN PRN Reason: Constipation - Labs Labs: 04/17/17 07:00 - Constitutional Appears: Non-toxic, No Acute Distress - Eye Exam Eye Exam: Normal appearance. absent: Scleral icterus - ENT Exam ENT Exam: Mucous Membranes Moist - Respiratory Exam Respiratory Exam: Clear to Ausculation Bilateral. absent: Respiratory Distress - Cardiovascular Exam Cardiovascular Exam: RRR, +S1, +S2 - GI/Abdominal Exam GI & Abdominal Exam: Soft. absent: Distended, Tenderness - Exam Exam: absent: Bladder Distension - Extremities Exam Additional comments: no leg edema; - Neurological Exam Neurological Exam: Alert, Awake - Psychiatric Exam Psychiatric exam: Normal Affect, Normal Mood. absent: Agitated - Skin Skin Exam: Warm. absent: Cyanosis Assessment and Plan (1) Hypernatremia Assessment & Plan: Improving with isotonic fluids; will need evaluation for diabetes insipidus/ polyuria once stabilized; head CT showing no acute process; -continue 1/2NS at 200 cc/hr (20 meq/L KCl added to help correct hypokalemia); -encourage PO fluid intake; -desired rate of correction ~10 meq per day to avoid cerebral edema; Status: Acute (2) Acute kidney injury Assessment & Plan: Pre-renal etiology, improving with IVF, continue as above; Status: Acute (3) HTN (hypertension) Assessment & Plan: BP controlled, continue amlodipine; Status: Chronic (4) Hypokalemia Assessment & Plan: Improved, see above; Status: Acute
[2017-04-17 19:39] LABS: BLOOD UREA NITROGEN 39 mg/dL (7-21); CALCIUM 8.5 mg/dL (8.4-10.5); GFR AFRICAN-AMERICAN > 60; GFR NON-AFRICAN AMERICAN > 60
[2017-04-17] MEDS: Potassium Chloride 20 MEQ in Sodium Chloride 0.45% 1,000 ML IV SCH (22:16)
[2017-04-18] MEDS: Potassium Chloride 20 MEQ in Sodium Chloride 0.45% 1,000 ML IV SCH ×4 (03:36→22:30)
[2017-04-18 07:49] VITALS: RESP 18
[2017-04-18 08:05] LABS: BLOOD UREA NITROGEN 32 mg/dL (7-21); CALCIUM 8.2 mg/dL (8.4-10.5); GFR AFRICAN-AMERICAN > 60; GFR NON-AFRICAN AMERICAN > 60
[2017-04-18 09:30] LABS: MEAN CELL VOLUME 88.9 fl (80.0-105.0); MEAN CORPUSCULAR HEMOGLOBIN 25.3 pg (25.0-35.0); MEAN CORPUSCULAR HGB CONC 28.5 g/dl (31.0-37.0); PLATELET COUNT 56 10^3/uL (120.0-450.0); RBC 3.79 10^6/uL (3.5-6.1); RED CELL DISTRIBUTION WIDTH 16.7 % (11.5-14.5); WHITE BLOOD COUNT 7.3 10^3/ul (4.5-11.0)
[2017-04-18 09:38] LABS: HEMOGLOBIN 9.6 g/dL (14.0-18.0)
[2017-04-18] MEDS: Aspirin 325 mg EC Tablets PO SCH (09:44)
[2017-04-18 17:46] LABS: BLOOD UREA NITROGEN 25 mg/dL (7-21); CALCIUM 8.5 mg/dL (8.4-10.5); GFR AFRICAN-AMERICAN > 60; GFR NON-AFRICAN AMERICAN > 60
[2017-04-18] MEDS ORDERED: Potassium Chloride 20 MEQ in Sodium Chloride 0.45% 1,000 ML IV SCH (22:27)
--- NOTE | 2017-04-18 22:28 | CP.PCM.PN ---
Subjective - Date & Time of Evaluation Date of Evaluation: 04/18/17 Time of Evaluation: 11:00 - Subjective Subjective: Feels thirsty; can only have nectar thickened liquids; otherwise reports feeling well; Objective - Vital Signs/Intake and Output Vital Signs (last 24 hours): Temp Pulse Resp BP Pulse Ox 98.6 F 82 18 132/70 100 04/18/17 17:55 04/18/17 17:55 04/18/17 17:55 04/18/17 17:55 04/18/17 17:55 Intake and Output: 04/18/17 04/19/17 18:59 06:59 Intake Total 2870 Output Total 1980 Balance 890 - Medications Medications: Current Medications Acetaminophen (Tylenol 325mg Tab) 650 mg PO Q4H PRN PRN Reason: Pain, Mild (1-3) Amlodipine Besylate (Norvasc) 10 mg PO DAILY [facility] Last Admin: 04/18/17 09:44 Dose: 10 mg Aspirin (Ecotrin) 325 mg PO DAILY [facility] Last Admin: 04/18/17 09:44 Dose: 325 mg Atorvastatin Calcium (Lipitor) 40 mg PO HS [facility] Last Admin: 04/17/17 22:21 Dose: 40 mg Cyanocobalamin (Vitamin B12 1000 Mcg Tab) 1,000 mcg PO DAILY [facility] Last Admin: 04/18/17 09:44 Dose: 1,000 mcg Docusate Sodium (Colace) 100 mg PO DAILY [facility] Last Admin: 04/18/17 09:44 Dose: 100 mg Levetiracetam (Keppra) 500 mg PO BID [facility] Last Admin: 04/18/17 18:21 Dose: 500 mg Magnesium Hydroxide (Milk Of Magnesia) 30 ml PO HS PRN PRN Reason: Constipation - Labs Labs: 04/18/17 09:20 04/18/17 17:23 - Constitutional Appears: Non-toxic, No Acute Distress - Eye Exam Eye Exam: Normal appearance. absent: Scleral icterus - ENT Exam ENT Exam: Mucous Membranes Moist - Respiratory Exam Respiratory Exam: Clear to Ausculation Bilateral. absent: Respiratory Distress - Cardiovascular Exam Cardiovascular Exam: RRR, +S1, +S2 - GI/Abdominal Exam GI & Abdominal Exam: Soft. absent: Distended, Tenderness - Exam Exam: absent: Bladder Distension - Extremities Exam Additional comments: no leg edema; - Neurological Exam Neurological Exam: Alert, Awake - Psychiatric Exam Psychiatric exam: Normal Mood. absent: Agitated - Skin Skin Exam: Warm. absent: Cyanosis Assessment and Plan (1) Hypernatremia Assessment & Plan: Improving slowly with 1/2NS at 200 cc/hr, d5W at 50 cc/hr added this morning due to mild hypoglycemia; continue to monitor closely; Status: Acute (2) Acute kidney injury Assessment & Plan: Pre-renal etiology, improving with IVF, continue; Status: Acute (3) HTN (hypertension) Assessment & Plan: BP controlled on amlodipine 10 mg daily, continue same; Status: Chronic (4) Hypokalemia Assessment & Plan: Improved with KCl in IVF, continue same for now; Status: Acute
[2017-04-19 07:17] LABS: EOS # 0.1 (0.0-0.7); EOS % 0.8 % (1.5-5.0); GRAN # 5.86 (1.4-6.5); GRAN % 78.5 % (50.0-68.0); HEMOGLOBIN 9.8 g/dL (14.0-18.0); LYMPH # 0.9 (1.2-3.4); LYMPH % 12.1 % (22.0-35.0); MEAN CELL VOLUME 85.8 fl (80.0-105.0); MEAN CORPUSCULAR HEMOGLOBIN 25.4 pg (25.0-35.0); MEAN CORPUSCULAR HGB CONC 29.6 g/dl (31.0-37.0); MONO # 0.6 (0.1-0.6); MONO % 8.6 % (1.0-6.0); PLATELET COUNT 43 10^3/uL (120.0-450.0); RBC 3.86 10^6/uL (3.5-6.1); RED CELL DISTRIBUTION WIDTH 16.1 % (11.5-14.5); WHITE BLOOD COUNT 7.5 10^3/ul (4.5-11.0)
[2017-04-19 07:49] LABS: IRON 47 ug/dL (45-180)
[2017-04-19 08:10] LABS: ALB/GLOB RATIO 0.9 (1.1-1.8); ALBUMIN 2.8 g/dL (3.0-4.8); ALT/SGPT 22 U/L (7-56); AST/SGOT 30 U/L (17-59); BLOOD UREA NITROGEN 15 mg/dL (7-21); CALCIUM 8.2 mg/dL (8.4-10.5); GFR AFRICAN-AMERICAN > 60; GFR NON-AFRICAN AMERICAN > 60
[2017-04-19] MEDS ORDERED: Potassium Chloride 20 MEQ in Sodium Chloride 0.45% 1,000 ML IV SCH (08:54)
--- NOTE | 2017-04-19 09:05 | PN ---
DATE: 04/17/2017 SUBJECTIVE: The patient is an 86-year-old male. The patient is seen and examined on the bedside. Looking better, but still looks like dehydrated, lethargic. No fever. No chills. No nausea, vomiting or diarrhea. No hematuria. No hematochezia. No swelling of the leg. No chest pain, no palpitation. PHYSICAL EXAMINATION: VITAL SIGNS: Temperature 98.4, pulse 90, blood pressure 122/72, respiratory rate 20. HEENT: Head is normocephalic, atraumatic. Eyes, PERRLA. Extraocular muscles are intact. Conjunctivae clear. Nose patent. Mucous membranes are moist. NECK: Supple. No carotid bruits. No JVD or thyromegaly. CHEST: Bilaterally symmetrical. HEART: S1, S2 positive. LUNGS: Clear to auscultation. ABDOMEN: Soft. Bowel sounds present. No organomegaly. EXTREMITIES: No edema, no cyanosis. NEUROLOGIC: The patient is awake, alert. Moving all 4 extremities. No focal deficits. MEDICATIONS: Colace, Ecotrin, Keppra, Lipitor, milk of magnesia, Norvasc, potassium, NS. LABORATORY DATA: We do not have recent lab today, but reviewed old labs. ASSESSMENT AND PLAN: The patient is an 86-year-old male with anemia, looks like dehydrated, hypernatremia, left-sided weakness, diabetes mellitus, hypertension, hypercholesterolemia, MEDICATIONS: Acetaminophen, aspirin, atorvastatin, cyanocobalamin, docusate, NS, Keppra, milk of magnesium. LABORATORY DATA: White blood cells 9.6, hemoglobin 13.4, hematocrit 45.2, platelets 110. Sodium 173, potassium 3.2, BUN 54, creatinine 1.5 and glucose 84. ASSESSMENT AND PLAN: The patient is an 86-year-old male with anemia, thrombocytopenia, hypokalemia, hypernatremia, hyperchloremia, renal insufficiency. Earth Science Teacher is on the case, but see if patient is ready to get recovered. Patient has a history of left-sided cerebrovascular accident, generalized weakness, decreased appetite. Seen by Nephrology, Olga Fuller, he will give the patient free water. We will follow up. Cierra Lilly MD Psychiatric # [id number] MTDBrandyn
--- NOTE | 2017-04-19 09:59 | PN ---
DATE: 04/17/2017 SUBJECTIVE: The patient is an 86-year-old male. The patient was examined at bedside, looking comfortable. No nausea, vomiting, or diarrhea. No hematuria or hematochezia. No swelling of the legs. No chest pain or palpitation. His mental level is improving. No headache. No dizziness. No fever. No chills. PHYSICAL EXAMINATION: VITAL SIGNS: Temperature is 97.8, pulse 79, respiratory rate 20, blood pressure 108/65, pulse oximetry is 100. HEENT: Head normocephalic, atraumatic. Eyes PERRLA. Extraocular muscles intact. Conjunctivae are clear. Nose is patent. Mucous membranes are moist. NECK: Supple. No carotid bruits. No JVD or thyromegaly. CHEST: Bilaterally symmetrical. HEART: S1 and S2 positive. LUNGS: Decreased auscultation. ABDOMEN: Soft, bowel sounds positive. No organomegaly. EXTREMITIES: No edema. No cyanosis. NEUROLOGIC: The patient is awake and alert. Moving all 4 extremities. No focal deficits. MEDICATIONS: Tylenol, amlodipine, aspirin, atorvastatin, vitamin B12, Colace, potassium, Keppra, milk of magnesia. LABORATORY DATA: Sodium 159, potassium 3.0, BUN noted , creatinine 1.3, glucose 73, chloride 130, carbon dioxide 25. ASSESSMENT AND PLAN: an 86-year-old with hypernatremia, hypokalemia, hyperchloremia, renal insufficiency, looks like dehydrated, has acute kidney injury, hypertension, anemia, proteinuria, hematuria, urinary tract infection. Did CAT scan of the head, reviewed by me. No evidence of acute infarction, age-appropriate involutional changes. Seen by Dr. Espinoza, deputy director of finance. The patient has history of hypertension, congestive heart failure with diastolic dysfunction, chronic obstructive pulmonary disease, cerebrovascular accident with left-sided residual weakness, seizure disorder, was discharged from the hospital last month for urinary tract infection, sepsis, sent to the residential, sent back to the ER from residential due to lethargy and decreased appetite, found to be severely hypernatremic, probably the deputy director of finance is seeing the patient. The patient has dementia, improving electrolytes, swallowing evaluation, weakness is getting better. Gastrointestinal and deep venous thrombosis prophylaxis. Repeat labs. Cierra Lilly MD SUSAN
--- NOTE | 2017-04-19 10:31 | PN ---
DATE: 04/18/2017 SUBJECTIVE: The patient is an 86-year-old male. The patient is seen and examined on the bedside, looking comfortable, being evaluated by speech therapist. He is better, able to swallow today, but still needing honey-thickened liquid. No fever. No chills. No headache. No dizziness. No hematuria. No hematochezia. No swelling of the leg. OBJECTIVE: VITAL SIGNS: Temperature 97.8, pulse 79, respiratory rate 20, blood pressure 120/80 , pulse oximetry 100. HEENT: Head is normocephalic, atraumatic. Eyes, PERRLA. Extraocular muscles are intact. Conjunctivae are clear. Nose is patent. Mucous membranes are moist. NECK: Supple. No carotid bruits. No JVD or thyromegaly. CHEST: Bilaterally symmetrical. HEART: S1 and S2 positive. LUNGS: Clear to auscultation. ABDOMEN: Soft. Bowel sounds present. No organomegaly. EXTREMITIES: No edema. No cyanosis. NEUROLOGIC: The patient is awake and alert, moving all 4 extremities. No focal deficit. MEDICATIONS: Norvasc, Ecotrin, Lipitor, vitamins, Colace, Keppra, milk of magnesia. LABORATORY DATA: White blood cells 7.3, hemoglobin 9.6 - big drop in hemoglobin, hematocrit 33.7, platelets 56. Sodium 153, potassium 3.9, BUN 25, creatinine 0.8. ASSESSMENT AND PLAN: The patient is an 86-year-old male with anemia, need anemia workup, ordered the stool guaiac x3. Hypernatremia, getting better. Hyperchloremia. Dysphagia improving. Discussion done with Dr. Dayton Espinoza, patient's ict help desk officer. CAT scan of the head done. Acute kidney injury - prerenal. Calory improving with intravenous fluid. Continue as above. Hypertension, blood pressure is controlled with amlodipine. Hypokalemia improved, replaced. Dementia. CAT scan of the head done, reviewed by me, no evidence of acute infarction, age-appropriate involuntary changes. Patient has a history of left-sided cerebrovascular accident. History of pneumonia. Left-sided weakness. Diabetes mellitus. History of frequent falls. History of anorexia. Gastrointestinal and deep venous thrombosis prophylaxes. Repeat labs. Discussion done with Dr. Espinoza, patient's ict help desk officer. Cierra Lilly MD MTDBrandyn
[2017-04-19] MEDS: Aspirin 325 mg EC Tablets PO SCH (11:04)
[2017-04-19 11:33] LABS: % IRON SATURATION 37 % (20-55); TOTAL IRON BINDING CAPACITY 130 ug/dL (261-462)
[2017-04-19 12:35] LABS: FOLATE 4.3 ng/mL
--- NOTE | 2017-04-19 19:48 | CON ---
DATE: 04/19/2017 REASON FOR CONSULTATION: Thrombocytopenia. HISTORY OF PRESENT ILLNESS: Mr. Platt is an 86-year-old male brought to the ED on 04/15/2017 with generalized weakness and decreased appetite. He has history of left-sided CVA with residual left-sided weakness. Denies any nausea, vomiting, chills and rigors. He was found to be hypernatremic on admission with elevated sodium of 172. Platelet count was 110 and hemoglobin 13.4. Platelet count declined to 53,000 today and hemoglobin to 9.8. Hypernatremia has improved since admission. He is alert, oriented. He has difficulty swallowing. He is on aspiration diet with nectar thick. PAST MEDICAL HISTORY: Left-sided CVA. PAST SURGICAL HISTORY: None. PERSONAL HISTORY: Nonsmoker, no history of alcohol abuse. SOCIAL HISTORY: Permanent resident of [facility] [place]. ALLERGIES: NO KNOWN DRUG ALLERGIES. HOME MEDICATIONS: Lipitor 40 at bedtime, aspirin 325 mg daily, K-Dur 40 mEq daily. REVIEW OF SYSTEMS: As per HPI, rest of 12-point review of systems reviewed and negative. PHYSICAL EXAMINATION: GENERAL: Comfortable in bed, in no acute distress. VITAL SIGNS: Temperature 98.7, heart rate is 100 per minute, respiratory rate 17 per minute, blood pressure 138/77, pulse ox is 98% on room air. HEENT: Left-sided eye droop. NECK: No neck lymphadenopathy. CHEST: Air entry present and equal bilaterally. No added sounds. CARDIOVASCULAR: S1, S2 normal. No murmur, no gallop. ABDOMEN: Soft, nontender. No hepatosplenomegaly. EXTREMITIES: No edema. CENTRAL NERVOUS SYSTEM: Left-sided weakness present in upper limb, lower limb. Alert, oriented x3. Speech normal. SKIN: No petechiae, no rash. SPINE: Nontender. LABORATORY DATA: White count 7.5, hemoglobin 9.8, hematocrit 33.1, platelet count 43,000. B12 level more than 1000. Iron 47, iron saturation 37. Sodium 149, potassium 3.3. LFTs within normal limits. Initial sodium was 173. UA positive, nitrite positive, leukocyte esterase positive. Blood cultures negative. CURRENT MEDICATIONS: Tylenol 650 q. 4 hours p.r.n., Norvasc 10 mg daily, aspirin 325 mg daily, Lipitor 40 mg daily, vitamin B12 1 mg daily, Keppra 500 mg p.o. b.i.d., milk of magnesia and potassium riders. ASSESSMENT: 1. Thrombocytopenia. 2. Anemia. 3. Hypernatremia. 4. Left-sided cerebrovascular accident. 5. Acute renal failure, resolving. PLAN: 1. Anemia and thrombocytopenia, likely related to uremia. He was admitted with elevated BUN of 62 and creatinine 1.7. It might also be autoimmune He never received heparin or Lovenox. Possibility of heparin-induced thrombocytopenia is ruled out. We will send antiplatelet antibody. Anemia, iron study shows normal iron. B12 and folate levels normal. Anemia might be related to acute renal insufficiency. We will continue to monitor blood counts. Antiplatelet antibody is ordered. Urine culture ordered, UA positive, rule out urosepsis. He is also on Keppra, which can give rise to thrombocytopenia. We will monitor the blood count closely. 2. Left-sided CVA, stable. 3. Acute renal failure, resolving. 4. Hypernatremia, resolving. Thank you, Dr. Lilly for allowing us to participate in Mr. Platt's care. Tami Denny MD MTDBrandyn
--- NOTE | 2017-04-19 22:03 | CP.PCM.PN ---
Subjective - Date & Time of Evaluation Date of Evaluation: 04/19/17 Time of Evaluation: 11:00 - Subjective Subjective: Patient reports feeling better; still on nectar thickened liquids and concern for aspiration; Objective - Vital Signs/Intake and Output Vital Signs (last 24 hours): Temp Pulse Resp BP Pulse Ox 98.8 F 100 H 18 121/76 98 04/19/17 16:00 04/19/17 16:00 04/19/17 16:00 04/19/17 16:00 04/19/17 16:00 Intake and Output: 04/19/17 04/20/17 18:59 06:59 Intake Total 120 240 Output Total 1500 600 Balance -1380 -360 - Medications Medications: Current Medications Acetaminophen (Tylenol 325mg Tab) 650 mg PO Q4H PRN PRN Reason: Pain, Mild (1-3) Amlodipine Besylate (Norvasc) 10 mg PO DAILY [facility] Last Admin: 04/19/17 11:04 Dose: 10 mg Aspirin (Ecotrin) 325 mg PO DAILY [facility] Last Admin: 04/19/17 11:04 Dose: 325 mg Atorvastatin Calcium (Lipitor) 40 mg PO HS [facility] Last Admin: 04/18/17 22:29 Dose: 40 mg Cyanocobalamin (Vitamin B12 1000 Mcg Tab) 1,000 mcg PO DAILY [facility] Last Admin: 04/19/17 11:04 Dose: 1,000 mcg Docusate Sodium (Colace) 100 mg PO DAILY [facility] Last Admin: 04/19/17 11:04 Dose: 100 mg Potassium Chloride 20 meq/ (Sodium Chloride) 1,010 mls @ 100 mls/hr IV .Q10H6M [facility] Last Admin: 04/19/17 16:00 Dose: 100 mls/hr Levetiracetam (Keppra) 500 mg PO BID [facility] Last Admin: 04/19/17 18:33 Dose: 500 mg Magnesium Hydroxide (Milk Of Magnesia) 30 ml PO HS PRN PRN Reason: Constipation - Labs Labs: 04/19/17 06:30 04/19/17 06:30 - Constitutional Appears: Non-toxic, No Acute Distress - Eye Exam Eye Exam: Normal appearance. absent: Scleral icterus - ENT Exam ENT Exam: Mucous Membranes Moist - Respiratory Exam Respiratory Exam: Clear to Ausculation Bilateral. absent: Respiratory Distress - Cardiovascular Exam Cardiovascular Exam: RRR, +S1, +S2 - GI/Abdominal Exam GI & Abdominal Exam: Soft. absent: Distended, Tenderness - Extremities Exam Additional comments: no leg edema; - Neurological Exam Neurological Exam: Alert, Awake - Psychiatric Exam Psychiatric exam: Normal Mood. absent: Agitated - Skin Skin Exam: Warm. absent: Cyanosis Assessment and Plan (1) Hypernatremia Assessment & Plan: Improving with IVF; not polyuric but still needs eval for diabetes insipidus ( unfortunately, urine osm was cancelled); -continue 1/2NS at 100 cc/hr; Status: Acute (2) Acute kidney injury Assessment & Plan: Improved with IVF, continue as above; Status: Acute (3) HTN (hypertension) Assessment & Plan: Controlled on amlodipine, continue; Status: Chronic (4) Hypokalemia Assessment & Plan: Persistent; continue KCl in IVF, additional replenishment as needed; Status: Acute
[2017-04-20 08:15] VITALS: PULSE 75; TEMP 98.6; O2SAT 100
--- NOTE | 2017-04-20 08:32 | PN ---
DATE: 04/19/2017 SUBJECTIVE: The patient is seen and examined on the bedside, looking comfortable. No fever. No chills. No nausea, vomiting, or diarrhea. No hematuria or hematochezia. No swelling of the leg. No chest pain. No palpitation. The patient is a very poor historian. REVIEW OF SYSTEMS: [id number] review of symptoms are reviewed and are negative except above. PHYSICAL EXAMINATION: VITAL SIGNS: Temperature 98.7, heart rate 100, respiratory rate 18, blood pressure 130/77. Pulse oximetry 98% on room air. HEENT: Head is normocephalic and atraumatic. Eyes, PERRLA. Extraocular muscles are intact. Conjunctivae are clear. Nose is patent. Mucous membranes are moist. NECK: Supple. No carotid bruits. No JVD or thyromegaly. CHEST: Bilaterally symmetrical. HEART: S1 and S2 positive. LUNGS: Clear to auscultation. ABDOMEN: Soft. Bowel sounds present. No organomegaly. EXTREMITIES: No edema. No cyanosis. NEUROLOGIC: The patient is awake and alert, moving all 4 extremities. No focal deficit. MEDICATIONS: Tylenol, Norvasc, aspirin, Lipitor, vitamin B12, Keppra, milk of magnesia. LABORATORY DATA: White blood cells 7.5, hemoglobin 9.8, hematocrit 33.1, platelets 43,000. B12 more than 1000, iron 47, iron saturation 37, sodium 149, potassium 3.3. Liver function within normal limits. I replaced potassium. Initial sodium was 173. Urinalysis positive for little of nitrites positive, leukocyte esterase positive. Blood cultures are negative. ASSESSMENT AND PLAN: Mr. Platt with multiple medical problems, now has new-onset thrombocytopenia, anemia, hypernatremia, Dr. Espinoza is on the case. Bring down sodium very slowly. Labs are renewed. Cerebrovascular accident, stable; acute renal failure, resolved; dementia, thrombocytopenia, anemia. Oncology consult called with Dr. Denny. According to her, this thrombocytopenia is related to uremia. Chemistry with elevated BUN and creatinine at 1.7, it might be autoimmune or it can be as he received the heparin and Lovenox, possibility of heparin-induced thrombocytopenia is ruled out because patient is antiplatelet antibody, anemia iron studies, ordered B12 and folic acid studies. Anemia may be probably related to acute renal insufficiency. We will continue to monitor blood loss. Antiplatelet antibody ordered, urine cultures ordered. Urinalysis positive. Rule out urosepsis, thrombocytopenia, left-sided weakness, acute renal failure, hematuria, resolving, getting better. Gastrointestinal and deep venous thrombosis prophylaxis. Repeat labs. We will follow up. Cierra Lilly MD MTDBrandyn
[2017-04-20 08:56] LABS: HEMOGLOBIN 10.8 g/dL (14.0-18.0); MEAN CELL VOLUME 84.5 fl (80.0-105.0); MEAN CORPUSCULAR HEMOGLOBIN 26.1 pg (25.0-35.0); MEAN CORPUSCULAR HGB CONC 30.9 g/dl (31.0-37.0); PLATELET COUNT 52 10^3/uL (120.0-450.0); RBC 4.14 10^6/uL (3.5-6.1); RED CELL DISTRIBUTION WIDTH 15.9 % (11.5-14.5); WHITE BLOOD COUNT 6.5 10^3/ul (4.5-11.0)
[2017-04-20 09:14] LABS: BLOOD UREA NITROGEN 11 mg/dL (7-21); CALCIUM 8.3 mg/dL (8.4-10.5); GFR AFRICAN-AMERICAN > 60; GFR NON-AFRICAN AMERICAN > 60
[2017-04-20] MEDS: Aspirin 325 mg EC Tablets PO SCH (09:39)
[2017-04-20 09:40] VITALS: BP 110/62
--- NOTE | 2017-04-20 23:04 | CP.PCM.PN ---
Objective - Vital Signs/Intake and Output Vital Signs (last 24 hours): Temp Pulse Resp BP Pulse Ox 98.6 F 75 18 110/62 100 04/20/17 07:30 04/20/17 07:30 04/20/17 07:30 04/20/17 09:39 04/20/17 07:30 - Labs Labs: 04/20/17 08:50 04/20/17 08:50 Assessment and Plan (1) Hypernatremia Status: Acute (2) Acute kidney injury Status: Acute (3) HTN (hypertension) Status: Chronic (4) Hypokalemia Status: Acute
== END 2017-04-20 14:48 | DRG 683 ==
LOC: ED 20:11 → ERH 22:59 → 5RNO 04-16 03:06
PROVIDERS: ADMIT Internal Medicine; ATTEND Internal Medicine
DX: N17.9 Acute kidney failure, unspecified (principal); E87.0 Hyperosmolality and hypernatremia; E86.0 Dehydration; D69.6 Thrombocytopenia, unspecified; I11.0 Hypertensive heart disease with heart failure; I50.30 Unspecified diastolic (congestive) heart failure; I69.354 Hemiplegia and hemiparesis following cerebral infarction affecting left non-dominant side; N39.0 Urinary tract infection, site not specified; R13.10 Dysphagia, unspecified; E87.8 Other disorders of electrolyte and fluid balance, not elsewhere classified; E87.6 Hypokalemia; J44.9 Chronic obstructive pulmonary disease, unspecified; E11.9 Type 2 diabetes mellitus without complications; G40.909 Epilepsy, unspecified, not intractable, without status epilepticus; E78.00 Pure hypercholesterolemia, unspecified; D64.9 Anemia, unspecified; F03.90 Unspecified dementia, unspecified severity, without behavioral disturbance, psychotic disturbance, mood disturbance, and anxiety; Z91.81 History of falling; R29.6 Repeated falls; Z87.01 Personal history of pneumonia (recurrent)